=== PATIENT | male | born 1990 | race Caucasian/White ===

== ENCOUNTER 2023-03-16 16:03 | Emergency (ER) | payer OTHER ==
[2023-03-16] MEDS ORDERED: Zofran 4 MG/2 ML VIAL IV ONE (16:12)
[2023-03-16] MEDS ORDERED: Ativan 2 MG/1 ML VIAL IV ONE ×2 (16:12→17:37)
--- NOTE | 2023-03-16 16:12 | ERPHSYRPT ---
- History of Present Illness Time Seen by Provider: 03/16/23 16:12 Source: patient, EMS, old records Exam Limitations: no limitations Physician History: This is a 32-year-old white male who was witnessed by his girlfriend to have had a seizure that lasted approximately 30 seconds. Patient does not recall the events at all. His last recollection was he was at his girlfriend's mother's home. He did not soil himself in any way. He did not vomit. He does not recall hitting his head. He does not have a headache. He does not have chest pain. He does not have shortness of breath. He has no abdominal pain. Patient has a family history of epileptic seizures. He has never been fully diagnosed with a seizure disorder although, he says he has had several sporadic episodes in the last several months. He admits to drug abuse but quit in October of this past year. Patient admits to using marijuana but no other illicit drugs. His history also states that there is is a history of attention deficit disorder. He is not on any medications. Timing/Duration: today, resolved prior to arrival Severity: mild Deficits: no difficulties Baseline/Normal Cognition: alert 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 Current Cognition: alert 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 Baseline Gait: walks w/o assistance Associated Symptoms: loss of consciousness, seizures, No nausea, No vomiting, No numbness/tingling in legs/feet, No paresthesia, No vision changes, No chest pain, No headache Allergies/Adverse Reactions: No Known Drug Allergies Allergy (Verified 03/16/23 16:04) Hx Tetanus, Diphtheria Vaccination/Date Given: Yes Hx Influenza Vaccination/Date Given: No Hx Pneumococcal Vaccination/Date Given: No Travel Risk - International Travel Have you traveled outside of the country in past 3 weeks: No - Coronavirus Screening Are you exhibiting any of the following symptoms?: No Close contact with a COVID-19 positive Pt in past 14-21 Days: No - Vaccine Status Have you recieved a Covid-19 vaccination: Yes 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 - Review of Systems Constitutional: No Symptoms Eyes: No Symptoms Ears, Nose, & Throat: No Symptoms Respiratory: No Symptoms Cardiac: No Symptoms Abdominal/Gastrointestinal: No Symptoms Genitourinary Symptoms: No Symptoms Musculoskeletal: No Symptoms Skin: No Symptoms Neurological: Seizure Psychological: No Symptoms Endocrine: No Symptoms Hematologic/Lymphatic: No Symptoms Immunological/Allergic: No Symptoms All Other Systems: Reviewed and Negative - Past Medical History Pertinent Past Medical History: Yes Psycho-Social History: Attention Deficit Disorder Other Medical History: States his only medical history is being attacked/biten by a pack of dogs when he was a child and ADHD - Past Surgical History Past Surgical History: No - Social History Smoking Status: Current some day smoker Exposure to second hand smoke: No Drug Use: marijuana - Nursing Vital Signs Nursing Vital Signs: Initial Vital Signs Temperature 97.1 F 03/16/23 16:03 Pulse Rate 95 H 03/16/23 16:03 Respiratory Rate 14 03/16/23 16:03 Blood Pressure 114/63 03/16/23 16:03 O2 Sat by Pulse Oximetry 98 03/16/23 16:03 Pain Scale Pain Intensity 0 - [place] Coma Scale Best Eye Response (Stacy): (4) open spontaneously Best Verbal Response ([place]): (5) oriented Best Motor Response ([place]): (6) obeys commands St[place] Total: 15 - Physical Exam General Appearance: no apparent distress, alert, anxiety, thin Eye Exam: bilateral eye: normal inspection, PERRL, EOMI Ears, Nose, Throat Exam: normal ENT inspection, moist mucous membranes Neck Exam: normal inspection, non-tender, supple, full range of motion Respiratory: normal breath sounds, lungs clear, airway intact, No chest tenderness, No respiratory distress Cardiovascular: regular rate/rhythm, normal heart sounds, normal peripheral pulses Gastrointestinal: soft, normal bowel sounds, No tenderness Rectal Exam: not done Back Exam: normal inspection, normal range of motion, No CVA tenderness, No vertebral tenderness Extremity Exam: normal inspection, normal range of motion, pelvis stable 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, 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, 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 Exam: normal hearing, normal speech, PERRL Motor/Sensory: no motor deficit, no sensory deficit Skin Exam: normal color, warm, dry SpO2 Interpretation: normal O2 Delivery: Room Air - Course Nursing assessment & vital signs reviewed: Yes EKG Interpreted by Me: RATE (89), Sinus Rhythm, NORMAL AXIS, NORMAL INTERVALS, NORMAL QRS, NORMAL ST-T, Other (No acute ischemic changes on today's twelve-lead EKG.) Ordered Tests: Active Orders 24 hr Category Date Time Status Pipe Coverer STAT Care 03/16/23 16:15 Active Clean Catch Urine Specimen STAT Care 03/16/23 16:12 Active EKG-ER Only STAT Care 03/16/23 16:12 Active IV Insertion STAT Care 03/16/23 16:12 Active HEAD WITHOUT CONTRAST [CT] Stat Exams 03/16/23 16:13 Completed ACETAMINOPHEN Stat Lab 03/16/23 16:42 Completed CBC W DIFF Stat Lab 03/16/23 16:42 Completed CMP Stat Lab 03/16/23 16:42 Completed ETHYL ALCOHOL Stat Lab 03/16/23 16:42 Completed SALICYLATE Stat Lab 03/16/23 16:42 Completed UA W/RFX UR CULTURE Stat Lab 03/16/23 16:53 Completed Urine Triage Profile Stat Lab 03/16/23 16:53 Completed Medication Summary Discontinued Medications Generic Name Dose Route Start Last Admin Trade Name Freq PRN Reason Stop Dose Admin Lorazepam 1 mg 03/16/23 16:12 03/16/23 17:27 Lorazepam 2 Mg/1 Ml 2 Mg Vial IV 03/16/23 16:13 1 mg STAT ONE Administration Lorazepam Confirm 03/16/23 17:25 Lorazepam 2 Mg/1 Ml 2 Mg Vial Administered 03/16/23 17:26 Dose 2 mg .ROUTE .STK-MED ONE Lorazepam Confirm 03/16/23 17:36 Lorazepam 2 Mg/1 Ml 2 Mg Vial Administered 03/16/23 17:37 Dose 2 mg .ROUTE .STK-MED ONE Lorazepam 1 mg 03/16/23 17:37 03/16/23 17:40 Lorazepam 2 Mg/1 Ml 2 Mg Vial IV 03/16/23 17:38 1 mg STAT ONE Administration Ondansetron HCl 4 mg 03/16/23 16:12 Ondansetron Hcl 4 Mg/2 Ml Vial IV 03/16/23 16:13 STAT ONE Lab/Rad Data: Laboratory Result Diagrams 03/16/23 16:42 03/16/23 16:42 Laboratory Results 03/16/23 03/16/23 03/16/23 Range/Units 16:53 16:53 16:42 WBC (4.0-10.5) x10^3/uL RBC (4.1-5.6) x10^6/uL Hgb (12.5-18.0) g/dL Hct (42-50) % MCV (78-100) fL MCH (26-32) pg MCHC (32-36) g/dL RDW (11.5-14.0) % Plt Count (150-450) x10^3/uL MPV (7.5-11.0) fL Gran % (36.0-66.0) % Immature Gran % (Auto) (0.00-0.4) % Nucleat RBC Rel Count (0.00-0.1) % Eos # (Auto) (0-0.5) x10^3/uL Immature Gran # (Auto) (0.00-0.03) x10^3u/L Absolute Lymphs (auto) (1.0-4.6) x10^3/uL Absolute Monos (auto) (0.0-1.3) x10^3/uL Absolute Nucleated RBC (0.00-0.01) x10^3u/L Lymphocytes % (24.0-44.0) % Monocytes % (0.0-12.0) % Eosinophils % (0.00-5.0) % Basophils % (0.0-0.4) % Absolute Granulocytes (1.4-6.9) x10^3/uL Basophils # (0-0.4) x10^3/uL Sodium 137 (137-145) mmol/L Potassium 3.9 (3.5-5.1) mmol/L Chloride 108 H (98-107) mmol/L Carbon Dioxide 21 L (22-30) mmol/L Anion Gap 11.7 (5-15) MEQ/L BUN 11 (9-20) mg/dL Creatinine 0.76 (0.66-1.25) mg/dL Estimated GFR 121.7 ML/MIN Glucose 104 (74-106) mg/dL Calcium 9.0 (8.4-10.2) mg/dL Total Bilirubin 0.50 (0.2-1.3) mg/dL AST 29 (17-59) U/L ALT 25 (0-50) U/L Alkaline Phosphatase 54 (38-126) U/L Serum Total Protein 7.9 (6.3-8.2) g/dL Albumin 4.4 (3.5-5.0) g/dL Urine Color Yellow (Yellow) Urine Appearance Clear (Clear) Urine pH 5.0 (4.6-8.0) Ur Specific [place] 1.010 (1.005-1.030) Urine Protein 30 (Negative) Urine Glucose (UA) Negative (Negative) mg/dL Urine Ketones Negative (Negative) Urine Blood Negative (Negative) Urine Nitrite Negative (Negative) Urine Bilirubin Negative (Negative) Urine Urobilinogen 0.2 (0.2) mg/dL Ur Leukocyte Esterase Negative (Negative) U Hyaline Cast (Auto) 0-2 (0-2) /LPF Urine Microscopic RBC NONE (0-5) /HPF Urine Microscopic WBC 0-2 (0-5) /HPF Ur Epithelial Cells Rare (None Seen) /HPF Urine Bacteria None Seen (None Seen) /HPF Urine Culture Reflexed NO (NO) Salicylates < 1.0 L (2-20) mg/dL Urine Opiates Level NEGATIVE (NEGATIVE) Ur Methadone NEGATIVE (NEGATIVE) Acetaminophen < 10 L (10-30) ug/ml Urine Barbiturates NEGATIVE (NEGATIVE) Ur Phencyclidine (PCP) NEGATIVE (NEGATIVE) Urine Amphetamine NEGATIVE (NEGATIVE) U Benzodiazepine Level NEGATIVE (NEGATIVE) Urine Cocaine NEGATIVE (NEGATIVE) Urine Marijuana (THC) POSITIVE A (NEGATIVE) Ethyl Alcohol < 10 (0-10) mg/dL 03/16/23 Range/Units 16:42 WBC 3.8 L (4.0-10.5) x10^3/uL RBC 4.84 (4.1-5.6) x10^6/uL Hgb 13.9 (12.5-18.0) g/dL Hct 43.2 (42-50) % MCV 89.3 (78-100) fL MCH 28.7 (26-32) pg MCHC 32.2 (32-36) g/dL RDW 13.2 (11.5-14.0) % Plt Count 230 (150-450) x10^3/uL MPV 8.9 (7.5-11.0) fL Gran % 37.5 (36.0-66.0) % Immature Gran % (Auto) 0.5 H (0.00-0.4) % Nucleat RBC Rel Count 0.0 (0.00-0.1) % Eos # (Auto) 0.04 (0-0.5) x10^3/uL Immature Gran # (Auto) 0.02 (0.00-0.03) x10^3u/L Absolute Lymphs (auto) 1.85 (1.0-4.6) x10^3/uL Absolute Monos (auto) 0.45 (0.0-1.3) x10^3/uL Absolute Nucleated RBC 0.00 (0.00-0.01) x10^3u/L Lymphocytes % 48.3 H (24.0-44.0) % Monocytes % 11.7 (0.0-12.0) % Eosinophils % 1.0 (0.00-5.0) % Basophils % 1.0 (0.0-0.4) % Absolute Granulocytes 1.43 (1.4-6.9) x10^3/uL Basophils # 0.04 (0-0.4) x10^3/uL Sodium (137-145) mmol/L Potassium (3.5-5.1) mmol/L Chloride (98-107) mmol/L Carbon Dioxide (22-30) mmol/L Anion Gap (5-15) MEQ/L BUN (9-20) mg/dL Creatinine (0.66-1.25) mg/dL Estimated GFR ML/MIN Glucose (74-106) mg/dL Calcium (8.4-10.2) mg/dL Total Bilirubin (0.2-1.3) mg/dL AST (17-59) U/L ALT (0-50) U/L Alkaline Phosphatase (38-126) U/L Serum Total Protein (6.3-8.2) g/dL Albumin (3.5-5.0) g/dL Urine Color (Yellow) Urine Appearance (Clear) Urine pH (4.6-8.0) Ur Specific [place] (1.005-1.030) Urine Protein (Negative) Urine Glucose (UA) (Negative) mg/dL Urine Ketones (Negative) Urine Blood (Negative) Urine Nitrite (Negative) Urine Bilirubin (Negative) Urine Urobilinogen (0.2) mg/dL Ur Leukocyte Esterase (Negative) U Hyaline Cast (Auto) (0-2) /LPF Urine Microscopic RBC (0-5) /HPF Urine Microscopic WBC (0-5) /HPF Ur Epithelial Cells (None Seen) /HPF Urine Bacteria (None Seen) /HPF Urine Culture Reflexed (NO) Salicylates (2-20) mg/dL Urine Opiates Level (NEGATIVE) Ur Methadone (NEGATIVE) Acetaminophen (10-30) ug/ml Urine Barbiturates (NEGATIVE) Ur Phencyclidine (PCP) (NEGATIVE) Urine Amphetamine (NEGATIVE) U Benzodiazepine Level (NEGATIVE) Urine Cocaine (NEGATIVE) Urine Marijuana (THC) (NEGATIVE) Ethyl Alcohol (0-10) mg/dL - Progress Progress: improved, re-examined Progress Note: 03/16/23 16:37 This patient's medical issue is 1 of moderate complexity. The level of complexity in the workup performed is based on the review of the patient's past medical history, review of the patient's medication list, review of the patient's drug allergy list, history of present illness and physical findings on examination. This patient's workup includes placement of an intravenous line, twelve-lead EKG, urinalysis, urine drug triage, acetaminophen level, salicylate level, blood alcohol level, CT scan of the head without contrast. 03/16/23 17:11 CT scan of the head without contrast was interpreted by the radiologist and I reviewed the impression. Impression states normal CT scan of the head without contrast 03/16/23 18:24 Patient had additional seizure episodes x 2 while here in the emergency department. We provided him with an additional dose of Ativan intravenously for total of 2 mg. We are also going to provide him with 500 mg intravenous Keppra followed by outpatient 500 mg Keppra twice a day. 03/16/23 18:25 I interpreted the laboratory data results. There is no evidence of any acute, or emergent medical issues based on laboratory data Counseled pt/family regarding: lab results, diagnosis, need for follow-up, rad results Medical Desision Making - Independent Historian Additional History obtained from: Relative/friend - Diagnostic Testing Diagnostic test were ordered, analyzed, and reviewed by me: Yes Radiological Interpretation: Reviewed by me, Teleradiologist Report - Risk of complications The pt has a mod risk of morbidity or mortality based on: Need for prescription drug management - Departure Departure Disposition: Home Clinical Impression: Seizure disorder Condition: Stable Critical Care Time: No Referrals: DOCTOR,NO FAMILY [Primary Care Provider] - Follow up/PCP as directed Additional Instructions: Take your antiseizure medicine as prescribed. Call tomorrow, 03/17/2023, and make an appointment with a primary care provider for further evaluation and management and referral to a neurologist. Prescriptions: Levetiracetam [Keppra] 500 mg PO BID #20 tablet
[2023-03-16 16:23] VITALS: TEMP 97.1
--- NOTE | 2023-03-16 16:42 | XRAY ---
Indication: Seizure. Multiple contiguous axial images obtained through the head without contrast. Comparison: None Normal appearing brain parenchyma, ventricles, and bony calvarium. Visualized paranasal sinuses and mastoid air cells are clear. Impression: Normal CT head without contrast exam.
[2023-03-16 16:52] LABS: Absolute Neutrophil Ct (ANC) 1.43 x10^3/uL (1.4-6.9); Basophil (Absolute #) 0.04 x10^3/uL (0-0.4); Eosinophil (Absolute #) 0.04 x10^3/uL (0-0.5); Hematocrit 43.2 % (42-50); Hemoglobin 13.9 g/dL (12.5-18.0); IMMATURE GRAN # 0.02 x10^3u/L (0.00-0.03); IMMATURE GRAN % 0.5 % (0.00-0.4); Lymphocyte (Absolute #) 1.85 x10^3/uL (1.0-4.6); Lymphocytes % 48.3 % (24.0-44.0); Mean Cell Volume 89.3 fL (78-100); Mean Corpuscular Hemoglobin 28.7 pg (26-32); Mean Corpuscular Hgb Concent. 32.2 g/dL (32-36); Mean Platelet Volume 8.9 fL (7.5-11.0); Monocyte (Absolute #) 0.45 x10^3/uL (0.0-1.3); Monocytes % 11.7 % (0.0-12.0); Neutrophil % 37.5 % (36.0-66.0); Platelet Count 230 x10^3/uL (150-450); Red Blood Count 4.84 x10^6/uL (4.1-5.6); Red Cell Distribution Width 13.2 % (11.5-14.0); White Blood Count 3.8 x10^3/uL (4.0-10.5)
[2023-03-16 17:06] LABS: ACETAMINOPHEN < 10 ug/ml (10-30); ALBUMIN 4.4 g/dL (3.5-5.0); ALKALINE PHOSPHATASE 54 U/L (38-126); ANION GAP 11.7 MEQ/L (5-15); BLOOD UREA NITROGEN 11 mg/dL (9-20); CHLORIDE 108 mmol/L (98-107); Carbon Dioxide 21 mmol/L (22-30); Creatinine 1 0.76 mg/dL (0.66-1.25); EST GLOMERULAR FILTRATION RATE 121.7 ML/MIN; ETHYL ALCOHOL < 10 mg/dL (0-10); Glucose 104 mg/dL (74-106); Potassium 3.9 mmol/L (3.5-5.1); SALICYLATE < 1.0 mg/dL (2-20); SGOT/AST 29 U/L (17-59); SGPT/ALT 25 U/L (0-50); SODIUM 137 mmol/L (137-145); Total Protein 7.9 g/dL (6.3-8.2)
[2023-03-16] MEDS ORDERED: Ativan 2 MG/1 ML VIAL ONE ×2 (17:25→17:36)
[2023-03-16 17:27] LABS: Amphetamine,Urine NEGATIVE (NEGATIVE); Barbiturate,Urine NEGATIVE (NEGATIVE); Benzodiazepine,Urine NEGATIVE (NEGATIVE); Cocaine,Urine NEGATIVE (NEGATIVE); Methadone,Urine NEGATIVE (NEGATIVE); Opiate,Urine NEGATIVE (NEGATIVE); PCP,Urine NEGATIVE (NEGATIVE); THC,Urine POSITIVE (NEGATIVE)
[2023-03-16 17:31] LABS: Appearance Clear (Clear); Bacteria None Seen /HPF (None Seen); Bilirubin Negative (Negative); Blood Negative (Negative); Glucose, Urine Negative (Negative); Ketones Negative (Negative); Leukocyte Esterase Negative (Negative); Nitrite Negative (Negative); Protein,Urine Dip 30 (Negative); Urobilinogen 0.2 mg/dL (0.2); WBC 0-2 /HPF (0-5)
[2023-03-16 17:34] LABS: Hyaline Casts 0-2 /LPF (0-2)
[2023-03-16] MEDS ORDERED: Ativan 2 MG/1 ML VIAL IM ONE (17:34)
[2023-03-16 17:35] LABS: ADD URINE CULTURE? NO (NO); Epithelial Cells Rare /HPF (None Seen)
[2023-03-16] MEDS ORDERED: Keppra 500 MG/5 ML*** 500 MG in D5w 100ML Mini Bag 100 ML 100 ML IV ONE (18:23)
[2023-03-16] MEDS ORDERED: Keppra 500 MG/5 ML ONE (18:44)
[2023-03-16] MEDS ORDERED: D5w 100ML Mini Bag 100 ML 100 ML IV ONE (18:44)
[2023-03-16 19:23] VITALS: BP 99/52; PULSE 76; RESP 18; O2SAT 99
== END 2023-03-16 19:23 | disposition home or self-care (01) ==
LOC: ED 16:03
DX: G40.909 Epilepsy, unspecified, not intractable, without status epilepticus (principal); Z72.0 Tobacco use
CPT/HCPCS: 36000; 36415; 70450; 80053; 80143; 80179; 80307; 81001; 82077; 85025; 93005; 93041; 96374; 99284; J1953; J2060

== ENCOUNTER 2023-05-12 12:09 | Emergency (ER) | payer OTHER ==
[2023-05-12 12:20] VITALS: TEMP 98.7
[2023-05-12 13:16] VITALS: O2SAT 98
[2023-05-12 13:18] LABS: Absolute Neutrophil Ct (ANC) 10.38 x10^3/uL (1.4-6.9); BASOPHIL % 0.3 % (0.0-0.4); Basophil (Absolute #) 0.04 x10^3/uL (0-0.4); Eosinophil % 1.4 % (0.00-5.0); Eosinophil (Absolute #) 0.17 x10^3/uL (0-0.5); Hematocrit 40.4 % (42-50); Hemoglobin 13.2 g/dL (12.5-18.0); IMMATURE GRAN # 0.04 x10^3u/L (0.00-0.03); IMMATURE GRAN % 0.3 % (0.00-0.4); Lymphocyte (Absolute #) 1.09 x10^3/uL (1.0-4.6); Lymphocytes % 8.7 % (24.0-44.0); Mean Cell Volume 88.4 fL (78-100); Mean Corpuscular Hemoglobin 28.9 pg (26-32); Mean Corpuscular Hgb Concent. 32.7 g/dL (32-36); Monocyte (Absolute #) 0.78 x10^3/uL (0.0-1.3); Monocytes % 6.2 % (0.0-12.0); Neutrophil % 83.1 % (36.0-66.0); Platelet Count 349 x10^3/uL (150-450); Red Blood Count 4.57 x10^6/uL (4.1-5.6); Red Cell Distribution Width 14.2 % (11.5-14.0); White Blood Count 12.5 x10^3/uL (4.0-10.5)
[2023-05-12 13:29] LABS: ACETAMINOPHEN < 10 ug/ml (10-30); ETHYL ALCOHOL < 10 mg/dL (0-10); SALICYLATE < 1.0 mg/dL (2-20)
[2023-05-12 13:30] LABS: ALBUMIN 4.6 g/dL (3.5-5.0); ANION GAP 13.9 MEQ/L (5-15); BILIRUBIN,TOTAL 0.3 mg/dL (0.2-1.3); Calcium 9.3 mg/dL (8.4-10.2); Creatinine 1 0.71 mg/dL (0.66-1.25); EST GLOMERULAR FILTRATION RATE 124.2 ML/MIN; Potassium 4.1 mmol/L (3.5-5.1); Total Protein 7.9 g/dL (6.3-8.2)
--- NOTE | 2023-05-12 14:00 | ERPHSYRPT ---
- History of Present Illness Time Seen by Provider: 05/12/23 12:20 Source: patient Exam Limitations: no limitations Patient Subjective Stated Complaint: [place] and was given 4mg of narcan and then he came to Triage Nursing Assessment: Pt brought to the ER by EMS, vitals wnl, denies pain, A&O x3, pt denies any drug use but was found with multiple vapes, pt stated that he may have been sleeping because he hasn't had much sleep lately and is homeless, pulses normal, skin n/w/d, texting someone on his cell phone, denies abdominal pain, denies N&V, no difficulty breathing, doesn't appear to be in any distress Physician History: 32-year-old male presents to our ED via EMS for medical screening exam. Patient was reportedly found unresponsive and responsive to Narcan. However patient st ates he was sleeping. Patient denies opiate use. Patient states he is homeless and has not slept. Pain patient reports that he finally found a comfortable spot and decided to take a nap. Patient denies drug use. Patient denies pain. Patient states he is originally from [place]. Then lived in [place] now is currently living in [place] with his girlfriend. Patient denies medical history. Patient admits to vaping. He voices no other complaints or concerns at this time. Portions of this note were created with voice recognition technology. There may be grammatical, spelling, punctuation or sound alike errors Severity: mild Modifying Factors: Improves With: nothing Associated Symptoms: denies symptoms Allergies/Adverse Reactions: No Known Drug Allergies Allergy (Verified 05/12/23 12:20) Home Medications: No Reportable Medications [No Reported Medications] 05/12/23 [History] Hx Tetanus, Diphtheria Vaccination/Date Given: Yes Hx Influenza Vaccination/Date Given: No Hx Pneumococcal Vaccination/Date Given: No Travel Risk - International Travel Have you traveled outside of the country in past 3 weeks: No - Coronavirus Screening Are you exhibiting any of the following symptoms?: No Close contact with a COVID-19 positive Pt in past 14-21 Days: No - Vaccine Status Have you recieved a Covid-19 vaccination: Yes Organ Installer: 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 - Review of Systems Constitutional: No Symptoms, No Fever, No Chills Eyes: No Symptoms Ears, Nose, & Throat: No Symptoms Respiratory: No Symptoms, No Cough, No Dyspnea Cardiac: No Symptoms, No Chest Pain, No Edema, No Syncope Abdominal/Gastrointestinal: No Symptoms, No Abdominal Pain, No Nausea, No Vomiting, No Diarrhea Genitourinary Symptoms: No Symptoms, No Dysuria Musculoskeletal: No Symptoms, No Back Pain, No Neck Pain Skin: No Symptoms, No Rash Neurological: No Symptoms, No Dizziness, No Focal Weakness, No Sensory Changes Psychological: No Symptoms Endocrine: No Symptoms Hematologic/Lymphatic: No Symptoms Immunological/Allergic: No Symptoms All Other Systems: Reviewed and Negative - Past Medical History Pertinent Past Medical History: Yes Neurological History: Seizures Psycho-Social History: Attention Deficit Disorder Other Medical History: States his only medical history is being attacked/biten by a pack of dogs when he was a child and ADHD - Past Surgical History Past Surgical History: No - Social History Smoking Status: Current some day smoker Exposure to second hand smoke: No Drug Use: marijuana Patient Lives Alone: Yes (homeless) - Nursing Vital Signs Nursing Vital Signs: Initial Vital Signs Blood Pressure 135/71 05/12/23 12:11 O2 Sat by Pulse Oximetry 98 05/12/23 12:11 Pain Scale Pain Intensity 0 - Physical Exam General Appearance: no apparent distress, alert Eye Exam: PERRL/EOMI, eyes nml inspection Ears, Nose, Throat Exam: normal ENT inspection, TMs normal, pharynx normal, moist mucous membranes Neck Exam: normal inspection, non-tender, supple, full range of motion Respiratory Exam: normal breath sounds, lungs clear, airway intact, No respiratory distress Cardiovascular Exam: regular rate/rhythm, normal heart sounds, normal peripheral pulses Gastrointestinal/Abdomen Exam: soft, normal bowel sounds, No tenderness, No mass Back Exam: normal inspection, normal range of motion, No CVA tenderness, No vertebral tenderness Extremity Exam: normal inspection, normal range of motion, pelvis stable Neurologic Exam: alert, 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, cooperative, normal mood/affect, nml cerebellar function, nml station & gait, sensation nml, No motor deficits Skin Exam: normal color, warm, dry, No rash Lymphatic Exam: No adenopathy SpO2 Interpretation: normal SpO2: 98 O2 Delivery: Room Air - Course Nursing assessment & vital signs reviewed: Yes EKG Interpreted by Me: RATE ([id number]), Sinus Rhythm, NORMAL AXIS, NORMAL INTERVALS Ordered Tests: Active Orders 24 hr Category Date Time Status Field Service Supervisor STAT Care 05/12/23 12:52 Active EKG-ER Only STAT Care 05/12/23 12:52 Active IV Insertion STAT Care 05/12/23 12:52 Active Pulse Oximetry (ED) STAT Care 05/12/23 12:52 Active ACETAMINOPHEN Stat Lab 05/12/23 13:10 Completed CBC W DIFF Stat Lab 05/12/23 13:10 Completed CMP Stat Lab 05/12/23 13:10 Completed ETHYL ALCOHOL Stat Lab 05/12/23 13:10 Completed NT PRO BNPII Stat Lab 05/12/23 13:10 Completed SALICYLATE Stat Lab 05/12/23 13:10 Completed TROPONIN Q4H Lab 05/12/23 13:10 Completed TROPONIN Q4H Lab 05/12/23 17:00 Ordered TROPONIN Q4H Lab 05/12/23 21:00 Ordered UA W/RFX UR CULTURE Stat Lab 05/12/23 13:25 Ordered Urine Triage Profile Stat Lab 05/12/23 13:25 Ordered Lab/Rad Data: Laboratory Result Diagrams 05/12/23 13:10 05/12/23 13:10 Laboratory Results 05/12/23 05/12/23 05/12/23 Range/Units 13:10 13:10 13:10 WBC (4.0-10.5) x10^3/uL RBC (4.1-5.6) x10^6/uL Hgb (12.5-18.0) g/dL Hct (42-50) % MCV (78-100) fL MCH (26-32) pg MCHC (32-36) g/dL RDW (11.5-14.0) % Plt Count (150-450) x10^3/uL MPV (7.5-11.0) fL Gran % (36.0-66.0) % Immature Gran % (Auto) (0.00-0.4) % Nucleat RBC Rel Count (0.00-0.1) % Eos # (Auto) (0-0.5) x10^3/uL Immature Gran # (Auto) (0.00-0.03) x10^3u/L Absolute Lymphs (auto) (1.0-4.6) x10^3/uL Absolute Monos (auto) (0.0-1.3) x10^3/uL Absolute Nucleated RBC (0.00-0.01) x10^3u/L Lymphocytes % (24.0-44.0) % Monocytes % (0.0-12.0) % Eosinophils % (0.00-5.0) % Basophils % (0.0-0.4) % Absolute Granulocytes (1.4-6.9) x10^3/uL Basophils # (0-0.4) x10^3/uL Sodium (135-145) mmol/L Potassium (3.5-5.1) mmol/L Chloride (98-107) mmol/L Carbon Dioxide (22-30) mmol/L Anion Gap (5-15) MEQ/L BUN (9-20) mg/dL Creatinine (0.66-1.25) mg/dL Estimated GFR ML/MIN Glucose (74-106) mg/dL Calcium (8.4-10.2) mg/dL Total Bilirubin (0.2-1.3) mg/dL AST (17-59) U/L ALT (0-50) U/L Alkaline Phosphatase (38-126) U/L Troponin I < 0.012 (0.000-0.034) ng/mL NT-Pro-B Natriuret Pep 50.5 (<300) pg/mL Serum Total Protein (6.3-8.2) g/dL Albumin (3.5-5.0) g/dL Salicylates < 1.0 L (2-20) mg/dL Acetaminophen < 10 L (10-30) ug/ml Ethyl Alcohol < 10 (0-10) mg/dL 05/12/23 05/12/23 Range/Units 13:10 13:10 WBC 12.5 H (4.0-10.5) x10^3/uL RBC 4.57 (4.1-5.6) x10^6/uL Hgb 13.2 (12.5-18.0) g/dL Hct 40.4 L (42-50) % MCV 88.4 (78-100) fL MCH 28.9 (26-32) pg MCHC 32.7 (32-36) g/dL RDW 14.2 H (11.5-14.0) % Plt Count 349 (150-450) x10^3/uL MPV 8.0 (7.5-11.0) fL Gran % 83.1 H (36.0-66.0) % Immature Gran % (Auto) 0.3 (0.00-0.4) % Nucleat RBC Rel Count 0.0 (0.00-0.1) % Eos # (Auto) 0.17 (0-0.5) x10^3/uL Immature Gran # (Auto) 0.04 H (0.00-0.03) x10^3u/L Absolute Lymphs (auto) 1.09 (1.0-4.6) x10^3/uL Absolute Monos (auto) 0.78 (0.0-1.3) x10^3/uL Absolute Nucleated RBC 0.00 (0.00-0.01) x10^3u/L Lymphocytes % 8.7 L (24.0-44.0) % Monocytes % 6.2 (0.0-12.0) % Eosinophils % 1.4 (0.00-5.0) % Basophils % 0.3 (0.0-0.4) % Absolute Granulocytes 10.38 H (1.4-6.9) x10^3/uL Basophils # 0.04 (0-0.4) x10^3/uL Sodium 140 (135-145) mmol/L Potassium 4.1 (3.5-5.1) mmol/L Chloride 108 H (98-107) mmol/L Carbon Dioxide 22 (22-30) mmol/L Anion Gap 13.9 (5-15) MEQ/L BUN 13 (9-20) mg/dL Creatinine 0.71 (0.66-1.25) mg/dL Estimated GFR 124.2 ML/MIN Glucose 96 (74-106) mg/dL Calcium 9.3 (8.4-10.2) mg/dL Total Bilirubin 0.30 (0.2-1.3) mg/dL AST 27 (17-59) U/L ALT 24 (0-50) U/L Alkaline Phosphatase 58 (38-126) U/L Troponin I (0.000-0.034) ng/mL NT-Pro-B Natriuret Pep (<300) pg/mL Serum Total Protein 7.9 (6.3-8.2) g/dL Albumin 4.6 (3.5-5.0) g/dL Salicylates (2-20) mg/dL Acetaminophen (10-30) ug/ml Ethyl Alcohol (0-10) mg/dL - Progress Progress: improved Progress Note: 32-year-old male presents to our ED for medical screening exam. Physical exam nonremarkable. Laboratory workup essentially nonremarkable. Patient observed for almost 2 hours in our ED. Vital stable. Patient asymptomatic he is not requesting discharge. Patient's girlfriend is waiting for him. Will discharge patient home. Patient does not have a local physician at this time however pat fransico referred to Dr. Izquierdo for follow-up. Patient agrees to follow-up within 48 hours. He voices no other complaints or concerns at this time. Portions of this note were created with voice recognition technology. There may be grammatical, spelling, punctuation or sound alike errors Complexity problem addressed is moderate acute complicated No critical care time Complex of data reviewed and analyzed is moderate. Test ordered test reviewed. Results analyzed and correlated clinically with history and physical exam. Risk of complication and or risk of morbidity/mortality of patient management is low Vital stable. Time spent to discharge patient is approximately 20 minutes. Plan of care established for shared decision making. No social determinants of health present impede follow-up. Portions of this note were created with voice recognition technology. There may be grammatical, spelling, punctuation or sound alike error 05/12/23 14:06 Counseled pt/family regarding: lab results, diagnosis, need for follow-up, rad results - Departure Departure Disposition: Home Clinical Impression: Encounter for medical screening examination Condition: Stable Critical Care Time: No Referrals: DOCTOR,NO FAMILY [Primary Care Provider] - Follow up/PCP as directed KAMI IZQUIERDO MD [ACTIVE STAFF] - Follow up/PCP as directed Additional Instructions: Discharge/Care Plan LORAINE CALDERON was seen on 05/12/23 in the Emergency Room. The patient was counseled regarding Diagnosis,Lab results, Imaging studies, need for follow up and when to return to the Emergency Room. Prescriptions given: Discharge Note I have spoken with the patient and/or caregivers. I have explained the patient's condition, diagnosis and treatment plan based on the information available to me at this time. I have answered the patient's and/or caregiver's questions and addressed any concerns. The patient and/or caregivers have as good understanding of the patient's diagnosis, condition and treatment plan as can be expected at this point. The vital signs have been stable. The patient's condition is stable and appropriate for discharge from the emergency department. The patient will pursue further outpatient evaluation with the primary care physician or other designated or consulting physician as outlined in the discharge instructions. The patient and/or caregivers are agreeable to this plan of care and follow-up instructions have been explained in detail. The patient and/or caregivers have received these instruction. The patient/and or caregivers are aware that any significant change in condition or worsening of symptoms should prompt an immediate return to this or the closest emergency department or call 911.
[2023-05-12 14:04] VITALS: BP 114/70; PULSE 79; RESP 12
[2023-05-12 14:24] LABS: Appearance Clear (Clear); Bacteria None Seen /HPF (None Seen); Bilirubin Negative (Negative); Blood Negative (Negative); Epithelial Cells None Seen /HPF (None Seen); Glucose, Urine Negative (Negative); Hyaline Casts NONE SEEN /LPF (0-2); Ketones Negative (Negative); Leukocyte Esterase Negative (Negative); Nitrite Negative (Negative); Protein,Urine Dip Negative (Negative); RBC 0-2 /HPF (0-5); Specific Gravity 1.015 (1.005-1.030); WBC 0-2 /HPF (0-5)
[2023-05-12 14:26] LABS: ADD URINE CULTURE? NO (NO)
[2023-05-12 14:45] LABS: Amphetamine,Urine NEGATIVE (NEGATIVE); Barbiturate,Urine NEGATIVE (NEGATIVE); Benzodiazepine,Urine NEGATIVE (NEGATIVE); Cocaine,Urine NEGATIVE (NEGATIVE); Methadone,Urine NEGATIVE (NEGATIVE); Opiate,Urine NEGATIVE (NEGATIVE); PCP,Urine NEGATIVE (NEGATIVE); THC,Urine POSITIVE (NEGATIVE)
== END 2023-05-12 14:12 | disposition home or self-care (01) ==
LOC: ED 12:09
DX: Z00.00 Encounter for general adult medical examination without abnormal findings (principal); F17.200 Nicotine dependence, unspecified, uncomplicated; Z59.00 Homelessness unspecified
CPT/HCPCS: 36000; 36415; 80053; 80143; 80179; 80307; 81001; 82077; 83880; 84484; 85025; 93005; 93041; 94760; 99284

== ENCOUNTER 2023-06-01 15:18 | Emergency (ER) | payer OTHER ==
--- NOTE | 2023-06-01 15:27 | ERPHSYRPT ---
- History of Present Illness Time Seen by Provider: 06/01/23 15:26 Source: patient, EMS, old records Exam Limitations: no limitations Physician History: This is a thin 32-year-old white male patient who was brought into the emergency department by paramedics because of witnessed seizure and fall. Patient was outside of work when this occurred. It occurred prior to arrival. Patient has been seen in this emergency department for seizures on at least 2 occasions and the other 2 occasions, patient was found to be unresponsive and sleepy. Patient denies illicit drug use except for occasional marijuana. He denies alcohol use/abuse. He denies head injury. Patient has a family history of epileptic seizures. He has never been fully diagnosed. He does not see a primary care provider, he has no known drug allergies and is not on any medications. Patient has never seen a neurologist. Patient has a history, in the past, of drug abuse. Patient has been diagnosed with ADD H but is not on any medication for this. Today, the patient feels a little sleepy but otherwise does not feel bad. He does state that in the last 2-3 nights he has not been sleeping well. He denies chest pain. He denies shortness of breath, he denies abdominal pain. He has not had any fever. He has no flulike symptoms. Patient denies soiling himself with stool or urine. Timing/Duration: today Severity: mild Character of Deficits: none Deficits: no difficulties Baseline/Normal Cognition: alert 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 Current Cognition: alert 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 Baseline Gait: walks w/o assistance Associated Symptoms: denies symptoms Allergies/Adverse Reactions: No Known Drug Allergies Allergy (Verified 05/12/23 12:20) Home Medications: No Reportable Medications [No Reported Medications] 05/12/23 [History] Hx Tetanus, Diphtheria Vaccination/Date Given: Yes Hx Influenza Vaccination/Date Given: No Hx Pneumococcal Vaccination/Date Given: No Travel Risk - International Travel Have you traveled outside of the country in past 3 weeks: No - Emerging Infectious Disease Are you exhibiting symptoms associated with any current EIDs: No - Review of Systems Constitutional: No Symptoms Eyes: No Symptoms Ears, Nose, & Throat: No Symptoms Respiratory: No Symptoms Cardiac: No Symptoms Abdominal/Gastrointestinal: No Symptoms Genitourinary Symptoms: No Symptoms Musculoskeletal: No Symptoms Skin: No Symptoms Neurological: Seizure Psychological: No Symptoms Endocrine: No Symptoms Hematologic/Lymphatic: No Symptoms Immunological/Allergic: No Symptoms All Other Systems: Reviewed and Negative - Past Medical History Pertinent Past Medical History: Yes Neurological History: Seizures Psycho-Social History: Attention Deficit Disorder Other Medical History: States his only medical history is being attacked/biten by a pack of dogs when he was a child and ADHD - Past Surgical History Past Surgical History: No - Social History Smoking Status: Current some day smoker Exposure to second hand smoke: No Drug Use: marijuana Patient Lives Alone: Yes (homeless) - Nursing Vital Signs Nursing Vital Signs: Initial Vital Signs Temperature 97.2 F 06/01/23 15:22 Pulse Rate 107 H 06/01/23 15:22 Respiratory Rate 20 06/01/23 15:22 Blood Pressure 126/79 06/01/23 15:22 O2 Sat by Pulse Oximetry 98 06/01/23 15:22 Pain Scale Pain Intensity 0 - Stacy Coma Scale Best Eye Response ([place]): (4) open spontaneously Best Verbal Response ([place]): (5) oriented Best Motor Response ([place]acy): (6) obeys commands Stacy Total: 15 - Physical Exam General Appearance: no apparent distress, alert, anxiety Eye Exam: bilateral eye: normal inspection, PERRL, EOMI Ears, Nose, Throat Exam: normal ENT inspection, moist mucous membranes Neck Exam: normal inspection, non-tender, other (Patient presents with cervical collar in place) Respiratory: normal breath sounds, lungs clear, airway intact, No chest tenderness, No respiratory distress Cardiovascular: regular rate/rhythm, normal heart sounds, normal peripheral pulses Gastrointestinal: soft, normal bowel sounds, No tenderness Rectal Exam: not done Back Exam: normal inspection, normal range of motion, No CVA tenderness, No vertebral tenderness Extremity Exam: normal inspection, normal range of motion, pelvis stable 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, 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, 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 Exam: normal hearing, normal speech, PERRL Motor/Sensory: no motor deficit, no sensory deficit Skin Exam: normal color, warm, dry SpO2 Interpretation: normal O2 Delivery: Room Air - Course Nursing assessment & vital signs reviewed: Yes EKG Interpreted by Me: RATE ([id number]), Sinus Tach, NORMAL AXIS, NORMAL INTERVALS, NORMAL QRS, NORMAL ST-T, Other (No acute ischemic changes on twelve-lead EKG) Ordered Tests: Active Orders 24 hr Category Date Time Status AMA [Release AMA] OM.NOW Care 06/01/23 16:29 Active Penciller STAT Care 06/01/23 15:32 Active EKG-ER Only STAT Care 06/01/23 15:30 Active IV Insertion STAT Care 06/01/23 15:30 Active POCT Glucose Check ONCE Care 06/01/23 15:30 Completed Pulse Oximetry (ED) STAT Care 06/01/23 15:30 Active ACO SDOH Referral ONCE Cons 06/01/23 15:28 Active CERVICAL SPINE WO CONTRAST [CT] Stat Exams 06/01/23 15:30 Completed HEAD WITHOUT CONTRAST [CT] Stat Exams 06/01/23 15:30 Completed ACETAMINOPHEN Stat Lab 06/01/23 15:40 Completed CBC W DIFF Stat Lab 06/01/23 15:30 Completed CMP Stat Lab 06/01/23 15:40 Completed ETHYL ALCOHOL Stat Lab 06/01/23 15:40 Completed SALICYLATE Stat Lab 06/01/23 15:40 Completed TROPONIN Q4H Lab 06/01/23 15:40 Completed TROPONIN Q4H Lab 06/01/23 19:45 Ordered TROPONIN Q4H Lab 06/01/23 23:45 Ordered UA W/RFX UR CULTURE Stat Lab 06/01/23 15:30 Ordered Urine Triage Profile Stat Lab 06/01/23 15:30 Ordered Medication Summary Discontinued Medications Generic Name Dose Route Start Last Admin Trade Name Freq PRN Reason Stop Dose Admin Sodium Chloride 1,000 mls @ 999 mls/hr 06/01/23 15:30 Sodium Chloride 0.9% 1000 Ml IV 06/01/23 16:30 .Q1H1M STA Lab/Rad Data: Laboratory Result Diagrams 06/01/23 15:30 06/01/23 15:40 Laboratory Results 06/01/23 06/01/23 06/01/23 Range/Units 15:40 15:40 15:40 WBC (4.0-10.5) x10^3/uL RBC (4.1-5.6) x10^6/uL Hgb (12.5-18.0) g/dL Hct (42-50) % MCV (78-100) fL MCH (26-32) pg MCHC (32-36) g/dL RDW (11.5-14.0) % Plt Count (150-450) x10^3/uL MPV (7.5-11.0) fL Gran % (36.0-66.0) % Immature Gran % (Auto) (0.00-0.4) % Nucleat RBC Rel Count (0.00-0.1) % Eos # (Auto) (0-0.5) x10^3/uL Immature Gran # (Auto) (0.00-0.03) x10^3u/L Absolute Lymphs (auto) (1.0-4.6) x10^3/uL Absolute Monos (auto) (0.0-1.3) x10^3/uL Absolute Nucleated RBC (0.00-0.01) x10^3u/L Lymphocytes % (24.0-44.0) % Monocytes % (0.0-12.0) % Eosinophils % (0.00-5.0) % Basophils % (0.0-0.4) % Absolute Granulocytes (1.4-6.9) x10^3/uL Basophils # (0-0.4) x10^3/uL Sodium 140 (135-145) mmol/L Potassium 3.7 (3.5-5.1) mmol/L Chloride 107 (98-107) mmol/L Carbon Dioxide 18 L (22-30) mmol/L Anion Gap 18.1 H (5-15) MEQ/L BUN 10 (9-20) mg/dL Creatinine 0.88 (0.66-1.25) mg/dL Estimated GFR 116.4 ML/MIN Glucose 104 (74-106) mg/dL Calcium 9.1 (8.4-10.2) mg/dL Total Bilirubin 0.40 (0.2-1.3) mg/dL AST 31 (17-59) U/L ALT 29 (0-50) U/L Alkaline Phosphatase 53 (38-126) U/L Troponin I < 0.012 (0.000-0.034) ng/mL Serum Total Protein 8.0 (6.3-8.2) g/dL Albumin 4.5 (3.5-5.0) g/dL Salicylates < 1.0 L (2-20) mg/dL Acetaminophen < 10 L (10-30) ug/ml Ethyl Alcohol < 10 (0-10) mg/dL 04/01/24 Range/Units 15:30 WBC 4.0 (4.0-10.5) x10^3/uL RBC 4.52 (4.1-5.6) x10^6/uL Hgb 13.2 (12.5-18.0) g/dL Hct 40.9 L (42-50) % MCV 90.5 (78-100) fL MCH 29.2 (26-32) pg MCHC 32.3 (32-36) g/dL RDW 14.4 H (11.5-14.0) % Plt Count 285 (150-450) x10^3/uL MPV 8.2 (7.5-11.0) fL Gran % 45.1 (36.0-66.0) % Immature Gran % (Auto) 0.3 (0.00-0.4) % Nucleat RBC Rel Count 0.0 (0.00-0.1) % Eos # (Auto) 0.02 (0-0.5) x10^3/uL Immature Gran # (Auto) 0.01 (0.00-0.03) x10^3u/L Absolute Lymphs (auto) 1.63 (1.0-4.6) x10^3/uL Absolute Monos (auto) 0.48 (0.0-1.3) x10^3/uL Absolute Nucleated RBC 0.00 (0.00-0.01) x10^3u/L Lymphocytes % 41.2 (24.0-44.0) % Monocytes % 12.1 H (0.0-12.0) % Eosinophils % 0.5 (0.00-5.0) % Basophils % 0.8 (0.0-0.4) % Absolute Granulocytes 1.79 (1.4-6.9) x10^3/uL Basophils # 0.03 (0-0.4) x10^3/uL Sodium (135-145) mmol/L Potassium (3.5-5.1) mmol/L Chloride (98-107) mmol/L Carbon Dioxide (22-30) mmol/L Anion Gap (5-15) MEQ/L BUN (9-20) mg/dL Creatinine (0.66-1.25) mg/dL Estimated GFR ML/MIN Glucose (74-106) mg/dL Calcium (8.4-10.2) mg/dL Total Bilirubin (0.2-1.3) mg/dL AST (17-59) U/L ALT (0-50) U/L Alkaline Phosphatase (38-126) U/L Troponin I (0.000-0.034) ng/mL Serum Total Protein (6.3-8.2) g/dL Albumin (3.5-5.0) g/dL Salicylates (2-20) mg/dL Acetaminophen (10-30) ug/ml Ethyl Alcohol (0-10) mg/dL - Progress Progress: improved, re-examined Progress Note: 06/01/23 15:38 This patient's medical issue is 1 of moderate complexity. The level of comp lexity in the workup performed is based on review of the patient's past medical history, review the patient's medication list, review the patient drug allergy list, history present illness and physical findings on examination. The workup in this patient includes placement of intravenous line, infusion of normal saline solution, urinalysis, CBC, CMP, troponin level, twelve-lead EKG, acetaminophen level, salicylate level, alcohol level, CT scan of the head without contrast, and CT scan of the cervical spine without contrast. 06/01/23 16:25 We are still waiting for the urine specimen in order to determine the patient's urinalysis and urine drug screen. However, the patient states his ride is going to be here in 5 minutes and he wants to leave and will not provide a urine or wait for the results if he was able to urinate for us. I reviewed the remainder of the laboratory data results and based on those results, there is no acute, emergent findings. CT scan of both the head and cervical spine without contrast were interpreted by the radiologist. I reviewed the impression. The impression of CT scan of the head without contrast shows no acute intracranial abnormality. CT scan of the cervical spine without contrast shows no acute fracture or subluxation. 06/01/23 16:27 I discussed with the patient, the importance to complete the workup. He does not want to wait. He does not want to provide us with a urine specimen. He understands that there may be acute, emergent findings on this lab. Patient is awake, alert and oriented. He understands the risks of leaving prematurely AGAINST MEDICAL ADVICE and the benefits of staying to complete his workup. He will sign the AGAINST MEDICAL ADVICE form. Counseled pt/family regarding: lab results, diagnosis, need for follow-up, rad results Medical Desision Making - Diagnostic Testing Diagnostic test were ordered, analyzed, and reviewed by me: Yes Radiological Interpretation: Reviewed by me, Teleradiologist Report - Risk of complications Low Risk: Low risk of morbidity from additional dx testing or treatment - Departure Departure Disposition: AMA Clinical Impression: Seizure Condition: Stable Critical Care Time: No Referrals: DOCTOR,NO FAMILY [NON-STAFF PHY W/O PRIVILEGES] - Follow up/PCP as directed Additional Instructions: Call your primary care provider tomorrow, 06/01/2021, to make arrangements for follow-up appointment in 48 hours. Return to the emergency department if symptoms recur. Avoid marijuana use and any use of illicit drugs.
[2023-06-01 15:28] VITALS: TEMP 97.2
[2023-06-01] MEDS ORDERED: Sodium Chloride 0.9% 1000 ML 1,000 ML IV STA (15:30)
[2023-06-01 15:44] LABS: Absolute Neutrophil Ct (ANC) 1.79 x10^3/uL (1.4-6.9); BASOPHIL % 0.8 % (0.0-0.4); Basophil (Absolute #) 0.03 x10^3/uL (0-0.4); Eosinophil % 0.5 % (0.00-5.0); Eosinophil (Absolute #) 0.02 x10^3/uL (0-0.5); Hematocrit 40.9 % (42-50); Hemoglobin 13.2 g/dL (12.5-18.0); IMMATURE GRAN # 0.01 x10^3u/L (0.00-0.03); IMMATURE GRAN % 0.3 % (0.00-0.4); Lymphocyte (Absolute #) 1.63 x10^3/uL (1.0-4.6); Lymphocytes % 41.2 % (24.0-44.0); Mean Cell Volume 90.5 fL (78-100); Mean Corpuscular Hemoglobin 29.2 pg (26-32); Mean Corpuscular Hgb Concent. 32.3 g/dL (32-36); Mean Platelet Volume 8.2 fL (7.5-11.0); Monocyte (Absolute #) 0.48 x10^3/uL (0.0-1.3); Monocytes % 12.1 % (0.0-12.0); Neutrophil % 45.1 % (36.0-66.0); Platelet Count 285 x10^3/uL (150-450); Red Blood Count 4.52 x10^6/uL (4.1-5.6); Red Cell Distribution Width 14.4 % (11.5-14.0)
[2023-06-01 15:58] LABS: ACETAMINOPHEN < 10 ug/ml (10-30); ALBUMIN 4.5 g/dL (3.5-5.0); ANION GAP 18.1 MEQ/L (5-15); BILIRUBIN,TOTAL 0.4 mg/dL (0.2-1.3); Calcium 9.1 mg/dL (8.4-10.2); Creatinine 1 0.88 mg/dL (0.66-1.25); EST GLOMERULAR FILTRATION RATE 116.4 ML/MIN; ETHYL ALCOHOL < 10 mg/dL (0-10); Potassium 3.7 mmol/L (3.5-5.1); SALICYLATE < 1.0 mg/dL (2-20)
[2023-06-01 16:06] VITALS: O2SAT 97
--- NOTE | 2023-06-01 16:21 | XRAY ---
Indication: Seizure. Status post fall. Multiple contiguous axial images obtained through the head without contrast. Comparison: March 16, 2023 Normal appearing brain parenchyma, ventricles, and bony calvarium. Impression: Continued normal CT head without contrast exam.
--- NOTE | 2023-06-01 16:23 | XRAY ---
Indication: Seizure. Status post fall. Multiple contiguous axial images obtained through the cervical spine. Sagittal and coronal reformatted images obtained. Comparison: None Axial images negative for acute fracture, suspicious bony lesions, or spinal canal stenosis. Facets are symmetric. Sagittal and coronal reformatted images demonstrates mild lordotic reversal, positional versus paraspinal spasm. No acute compression fracture, subluxation, or jumped facet. Normal appearing craniocervical junction. Visualized noncontrasted soft tissues are unremarkable. Lung apices demonstrates subpleural cystic changes. Impression: 1. Lordotic reversal, positional versus paraspinal spasm. Negative acute fracture/subluxation. 2. Incidental biapical subpleural cystic changes.
[2023-06-01 16:32] VITALS: BP 121/84; PULSE 80; RESP 16
== END 2023-06-01 16:48 | disposition left against medical advice (07) ==
LOC: ED 15:18
DX: R56.9 Unspecified convulsions (principal); R53.83 Other fatigue; Z72.0 Tobacco use; Z59.00 Homelessness unspecified; Z82.0 Family history of epilepsy and other diseases of the nervous system
CPT/HCPCS: 36415; 70450; 72125; 80053; 80143; 80179; 82077; 84484; 85025; 93005; 93041; 94760; 99284

== ENCOUNTER 2023-06-01 17:54 | Emergency (ER) | payer OTHER ==
--- NOTE | 2023-06-01 17:57 | ERPHSYRPT ---
- History of Present Illness Time Seen by Provider: 06/01/23 17:57 Source: patient, EMS Exam Limitations: no limitations Physician History: This is a 32-year-old white male patient who just left our emergency department AGAINST MEDICAL ADVICE after he had a seizure. He did not stay to complete the workup. The patient went home and had another seizure and the paramedics brought him into the emergency department a second time within the last few hours. He denies chest pain. He denies headache. He did not soil himself. He has no abdominal pain. He has no shortness of breath. The patient states that he thinks it is because he has not been sleeping the last 2-3 nights. He states he gave a urine specimen during the last visit 2 to 3 hours ago. I will check this. If he has given us a urine to check for urinalysis and urine drug triage, I will not repeat all the studies again since they are only 2 hours old. Timing/Duration: today Severity: mild Character of Deficits: none Deficits: no difficulties Baseline/Normal Cognition: alert 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 Current Cognition: alert 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 Baseline Gait: walks w/o assistance Associated Symptoms: seizures Allergies/Adverse Reactions: No Known Drug Allergies Allergy (Verified 05/12/23 12:20) Hx Tetanus, Diphtheria Vaccination/Date Given: Yes Hx Influenza Vaccination/Date Given: No Hx Pneumococcal Vaccination/Date Given: No Travel Risk - International Travel Have you traveled outside of the country in past 3 weeks: No - Emerging Infectious Disease Are you exhibiting symptoms associated with any current EIDs: No - Review of Systems Constitutional: No Symptoms Eyes: No Symptoms Ears, Nose, & Throat: No Symptoms Respiratory: No Symptoms Cardiac: No Symptoms Abdominal/Gastrointestinal: No Symptoms Genitourinary Symptoms: No Symptoms Musculoskeletal: No Symptoms Skin: No Symptoms Neurological: Seizure Psychological: No Symptoms Endocrine: No Symptoms Hematologic/Lymphatic: No Symptoms Immunological/Allergic: No Symptoms All Other Systems: Reviewed and Negative - Past Medical History Pertinent Past Medical History: Yes Neurological History: Seizures Psycho-Social History: Attention Deficit Disorder Other Medical History: States his only medical history is being attacked/biten by a pack of dogs when he was a child and ADHD - Past Surgical History Past Surgical History: No - Social History Smoking Status: Current some day smoker Exposure to second hand smoke: No Drug Use: marijuana Patient Lives Alone: Yes (homeless) - Nursing Vital Signs Nursing Vital Signs: Initial Vital Signs Temperature 97.4 F 06/01/23 17:55 Pulse Rate 109 H 06/01/23 17:55 Respiratory Rate 20 06/01/23 17:55 Blood Pressure 112/60 06/01/23 17:55 O2 Sat by Pulse Oximetry 97 06/01/23 17:55 Pain Scale Pain Intensity 0 - [place] Coma Scale Best Eye Response (Stacy): (1) no response Best Verbal Response ([place]): (5) oriented Best Motor Response ([place]): (6) obeys commands [place] Total: 12 - Physical Exam General Appearance: no apparent distress, alert, anxiety, thin Eye Exam: bilateral eye: normal inspection, PERRL, EOMI Ears, Nose, Throat Exam: normal ENT inspection, moist mucous membranes Neck Exam: normal inspection, non-tender, supple, full range of motion Respiratory: normal breath sounds, lungs clear, airway intact, No chest tenderness, No respiratory distress Cardiovascular: regular rate/rhythm, normal heart sounds, normal peripheral pulses Gastrointestinal: soft, normal bowel sounds, No tenderness Rectal Exam: not done Back Exam: normal inspection, normal range of motion, No CVA tenderness, No vertebral tenderness Extremity Exam: normal inspection, normal range of motion, pelvis stable 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, 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, 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 Exam: normal hearing, normal speech, PERRL, tongue midline Coordination/Gait: normal finger to nose, normal gait Motor/Sensory: no motor deficit, no sensory deficit Skin Exam: normal color, warm, dry SpO2 Interpretation: normal O2 Delivery: Room Air - Course Nursing assessment & vital signs reviewed: Yes Ordered Tests: Active Orders 24 hr Category Date Time Status AMA [Release AMA] OM.NOW Care 06/01/23 19:47 Active EKG-ER Only STAT Care 06/01/23 17:57 Active IV Insertion STAT Care 06/01/23 17:57 Active Pulse Oximetry (ED) STAT Care 06/01/23 17:57 Active ACO SDOH Referral ROUTINE Cons 06/01/23 18:01 Active CULTURE,URINE Stat Lab 06/01/23 19:16 Received UA W/RFX UR CULTURE Stat Lab 06/01/23 19:16 Completed Urine Triage Profile Stat Lab 06/01/23 19:16 Results Medication Summary Discontinued Medications Generic Name Dose Route Start Last Admin Trade Name Freq PRN Reason Stop Dose Admin Lorazepam 1 mg 06/01/23 17:57 06/01/23 18:07 Lorazepam 2 Mg/1 Ml 2 Mg Vial IV 06/01/23 17:58 1 mg STAT ONE Administration Lorazepam Confirm 06/01/23 18:06 Lorazepam 2 Mg/1 Ml 2 Mg Vial Administered 06/01/23 18:07 Dose 2 mg .ROUTE .STK-MED ONE Ondansetron HCl 4 mg 06/01/23 17:57 06/01/23 18:07 Ondansetron Hcl 4 Mg/2 Ml Vial IV 06/01/23 17:58 4 mg STAT ONE Administration Ondansetron HCl Confirm 06/01/23 18:06 Ondansetron Hcl 4 Mg/2 Ml Vial Administered 06/01/23 18:07 Dose 4 mg .ROUTE .STK-MED ONE Lab/Rad Data: Laboratory Results 06/01/23 06/01/23 Range/Units 19:16 19:16 Urine Color Yellow (Yellow) Urine Appearance Clear (Clear) Urine pH 6.0 (4.6-8.0) Ur Specific Red [place] 1.015 (1.005-1.030) Urine Protein 30 (Negative) Urine Glucose (UA) Negative (Negative) mg/dL Urine Ketones Trace A (Negative) Urine Blood Trace (Negative) Urine Nitrite Negative (Negative) Urine Bilirubin Negative (Negative) Urine Urobilinogen 0.2 (0.2) mg/dL Ur Leukocyte Esterase Negative (Negative) U Hyaline Cast (Auto) 3-5 A (0-2) /LPF Urine Microscopic RBC 0-2 (0-5) /HPF Urine Microscopic WBC 0-2 (0-5) /HPF Ur Epithelial Cells None Seen (None Seen) /HPF Urine Bacteria None Seen (None Seen) /HPF Granular Casts 0-2 A (None Seen) /LPF Urine Culture Reflexed YES (NO) Urine Opiates Level NEGATIVE (NEGATIVE) Ur Methadone NEGATIVE (NEGATIVE) Urine Barbiturates NEGATIVE (NEGATIVE) Ur Phencyclidine (PCP) NEGATIVE (NEGATIVE) Urine Amphetamine Pending U Benzodiazepine Level NEGATIVE (NEGATIVE) Urine Cocaine NEGATIVE (NEGATIVE) Urine Marijuana (THC) POSITIVE A (NEGATIVE) - Progress Progress: unchanged Progress Note: 06/01/23 18:24 This patient's medical issue is 1 of low to moderate complexity. This patient left AGAINST MEDICAL ADVICE. He did not want a wait for the total, complete results of his workup. He left this emergency department approximately 2 hours ago. I will make sure that the urine triage results and urinalysis results have been completed. We are replacing an intravenous line and providing him with Ativan intravenously. I will also obtain a teleneurology consultation. 06/01/23 19:51 This patient's laboratory data results were interpreted by me. His urinalysis shows some mild dehydration. Patient had received a liter of fluid at the time of obtaining this urinalysis. The amphetamine level is pending and this patient and the urine also tested positive for marijuana. This patient is awake alert oriented. He is not suicidal. He is not homicidal. He understands the risk of leaving AGAINST MEDICAL ADVICE. He did so a few hours ago. He does not want to have a teleneurology consultation. He is leaving AGAINST MEDICAL ADVICE again. I will send prescription remotely to his pharmacy for Keppra for 1 weeks supply. Counseled pt/family regarding: lab results, diagnosis, need for follow-up Medical Desision Making - Diagnostic Testing Diagnostic test were ordered, analyzed, and reviewed by me: Yes - Risk of complications The pt has a mod risk of morbidity or mortality based on: Need for prescription drug management - Departure Departure Disposition: AMA Clinical Impression: Seizure Condition: Stable Critical Care Time: No Referrals: PJ HER MD [Primary Care Provider] - Follow up/PCP as directed Additional Instructions: You must contact your primary care provider tomorrow, 06/02/2023. You must be evaluated within 48 hours for further management of these seizures. Avoid illicit drug use. Prescriptions: Levetiracetam [Keppra] 500 mg PO BID #14 tablet
[2023-06-01 18:01] VITALS: TEMP 97.4
[2023-06-01] MEDS ORDERED: Zofran 4 MG/2 ML VIAL ONE (18:06)
[2023-06-01] MEDS ORDERED: Ativan 2 MG/1 ML VIAL ONE (18:06)
[2023-06-01] MEDS: Zofran 4 MG/2 ML VIAL IV ONE (18:07)
[2023-06-01] MEDS: Ativan 2 MG/1 ML VIAL IV ONE (18:07)
[2023-06-01 19:32] VITALS: O2SAT 98
[2023-06-01 19:33] VITALS: BP 125/72; PULSE 64; RESP 16
[2023-06-01 19:41] LABS: Appearance Clear (Clear); Bacteria None Seen /HPF (None Seen); Bilirubin Negative (Negative); Blood Trace (Negative); Epithelial Cells None Seen /HPF (None Seen); Glucose, Urine Negative (Negative); Ketones Trace (Negative); Leukocyte Esterase Negative (Negative); Nitrite Negative (Negative); Protein,Urine Dip 30 (Negative); RBC 0-2 /HPF (0-5); Specific Gravity 1.015 (1.005-1.030); Urobilinogen 0.2 mg/dL (0.2); WBC 0-2 /HPF (0-5)
[2023-06-01 19:42] LABS: ADD URINE CULTURE? YES (NO); Barbiturate,Urine NEGATIVE (NEGATIVE); Cocaine,Urine NEGATIVE (NEGATIVE); Granular Casts 0-2 /LPF (None Seen); Methadone,Urine NEGATIVE (NEGATIVE); Opiate,Urine NEGATIVE (NEGATIVE); PCP,Urine NEGATIVE (NEGATIVE); THC,Urine POSITIVE (NEGATIVE)
[2023-06-01 19:48] LABS: Benzodiazepine,Urine NEGATIVE (NEGATIVE)
[2023-06-01 20:17] LABS: Amphetamine,Urine POSITIVE (NEGATIVE)
== END 2023-06-01 19:57 | disposition left against medical advice (07) ==
LOC: ED 17:54
DX: R56.9 Unspecified convulsions (principal); Z72.0 Tobacco use; Z79.899 Other long term (current) drug therapy; Z59.00 Homelessness unspecified
CPT/HCPCS: 36000; 80307; 81001; 87086; 93005; 94760; 96374; 96375; 99284; J2060; J2405

== ENCOUNTER 2023-07-03 10:42 | Emergency (ER) | payer OTHER ==
[2023-07-03 10:47] VITALS: BP 97/65; PULSE 87; RESP 18; TEMP 97
[2023-07-03] MEDS ORDERED: Sodium Chloride 0.9% 1000 ML 1,000 ML ONE (11:05)
[2023-07-03] MEDS: Sodium Chloride 0.9% 1000 ML 1,000 ML IV STA (11:06)
[2023-07-03] MEDS ORDERED: Keppra 500 MG/5 ML ONE ×2 (11:26→11:27)
[2023-07-03] MEDS ORDERED: Sodium Chloride 0.9% 100 ML ONE (11:27)
--- NOTE | 2023-07-03 11:30 | ERPHSYRPT ---
- History of Present Illness Time Seen by Provider: 07/03/23 10:45 Source: patient, EMS, old records Exam Limitations: clinical condition Patient Subjective Stated Complaint: pt here for a possible seizure at work today, was found at [employer] in bathroom passed out, pt states he does not know what happened. pt has hx of seizures and drug use. pt was given a total of 4mg of narcan which ems states they think helped. pt co pain to head. Triage Nursing Assessment: pt alert,oriented. arrived per ems, skin w/d/p. has contusion to right side of head. skin w/d/p, moves all ext well, pt does not remember events, Physician History: This is a 32-year-old white male patient with known history of substance abuse and history of seizure disorder who has been noncompliant with his medication and follow-up instructions. He has been seen in this emergency department several times for seizure episodes. The patient was brought into the emergency department by paramedics. 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 It is presumed that the patient had a seizure but it was not witnessed. Patient was given a total of 4 mg of Narcan. According to individuals providing the Narcan, after the 2 separate dosages of 2 mg Narcan, the patient seemed more arousable. Patient arrives to the emergency department with a cervical collar in place and is answering questions. He did hit his head and there is a swelling in the right frontal parietal region. There was no soiling of his pants with stool or urine. Timing/Duration: today Severity: moderate Character of Deficits: none Deficits: no difficulties Baseline/Normal Cognition: alert 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 Current Cognition: alert 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 Baseline Gait: walks w/o assistance Associated Symptoms: headache (The area of the contusion and swelling) Allergies/Adverse Reactions: No Known Drug Allergies Allergy (Verified 07/03/23 10:43) Home Medications: No Reportable Medications [No Reported Medications] 07/03/23 [History] Hx Tetanus, Diphtheria Vaccination/Date Given: Yes Hx Influenza Vaccination/Date Given: No Hx Pneumococcal Vaccination/Date Given: No Immunizations Up to Date: Yes Travel Risk - International Travel Have you traveled outside of the country in past 3 weeks: No - Emerging Infectious Disease Are you exhibiting symptoms associated with any current EIDs: No - Review of Systems Constitutional: No Symptoms Eyes: No Symptoms Ears, Nose, & Throat: No Symptoms Respiratory: No Symptoms Cardiac: No Symptoms Abdominal/Gastrointestinal: No Symptoms Genitourinary Symptoms: No Symptoms Musculoskeletal: No Symptoms Skin: Other (Contusion swelling right side frontoparietal region) Psychological: No Symptoms Endocrine: No Symptoms Hematologic/Lymphatic: No Symptoms Immunological/Allergic: No Symptoms All Other Systems: Reviewed and Negative - Past Medical History Pertinent Past Medical History: Yes Neurological History: Seizures Psycho-Social History: Attention Deficit Disorder Other Medical History: States his only medical history is being attacked/biten by a pack of dogs when he was a child and ADHD - Past Surgical History Past Surgical History: No - Social History Smoking Status: Current some day smoker Exposure to second hand smoke: Yes Drug Use: marijuana Patient Lives Alone: Yes (homeless) - Nursing Vital Signs Nursing Vital Signs: Initial Vital Signs Temperature 97 F 07/03/23 10:45 Pulse Rate 87 07/03/23 10:45 Respiratory Rate 18 07/03/23 10:45 Blood Pressure 97/65 07/03/23 10:45 O2 Sat by Pulse Oximetry 97 07/03/23 10:45 Pain Scale Pain Intensity 4 - [place] Coma Scale Best Eye Response ([place]): (4) open spontaneously Best Verbal Response ([place]): (5) oriented Best Motor Response ([place]): (6) obeys commands [place] Total: 15 - Physical Exam General Appearance: no apparent distress, lethargy (Very mildly lethargic.? Postictal) Eye Exam: bilateral eye: normal inspection, PERRL, EOMI Ears, Nose, Throat Exam: normal ENT inspection, moist mucous membranes Neck Exam: normal inspection, non-tender, other (Cervical collar in place) Respiratory: normal breath sounds, lungs clear, airway intact, No chest tend erness, No respiratory distress Cardiovascular: regular rate/rhythm, normal heart sounds, normal peripheral pulses Gastrointestinal: soft, normal bowel sounds, No tenderness Rectal Exam: not done Back Exam: normal inspection, normal range of motion, No CVA tenderness, No vertebral tenderness Extremity Exam: normal inspection, normal range of motion, pelvis stable 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, 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, 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 Exam: normal hearing, normal speech, PERRL, tongue midline (Patient is neurologically intact) Skin Exam: normal color, warm, dry, other (Right frontal parietal hematoma) SpO2 Interpretation: normal SpO2: 97 O2 Delivery: Room Air - Course Nursing assessment & vital signs reviewed: Yes EKG Interpreted by Me: RATE (84), Sinus Rhythm, Right Cope Deviation (Borderline), NORMAL INTERVALS, NORMAL QRS, NORMAL ST-T, Other (No acute ischemic changes on today's twelve-lead EKG.) Ordered Tests: Active Orders 24 hr Category Date Time Status EKG-ER Only STAT Care 07/03/23 10:57 Active IV Insertion STAT Care 07/03/23 10:57 Active ACO SDOH Referral ONCE Cons 07/03/23 10:56 Active CERVICAL SPINE WO CONTRAST [CT] Stat Exams 07/03/23 11:00 Completed HEAD WITHOUT CONTRAST [CT] Stat Exams 07/03/23 11:00 Completed ACETAMINOPHEN Stat Lab 07/03/23 11:35 Completed CBC W DIFF Stat Lab 07/03/23 11:35 Completed CMP Stat Lab 07/03/23 11:35 Completed ETHYL ALCOHOL Stat Lab 07/03/23 11:35 Completed SALICYLATE Stat Lab 07/03/23 11:35 Completed UA W/RFX UR CULTURE Stat Lab 07/03/23 10:58 Ordered Urine Triage Profile Stat Lab 07/03/23 10:58 Ordered Medication Summary Discontinued Medications Generic Name Dose Route Start Last Admin Trade Name Freq PRN Reason Stop Dose Admin Sodium Chloride 1,000 mls @ 999 mls/hr 07/03/23 10:57 07/03/23 12:28 Sodium Chloride 0.9% 1000 Ml IV 07/03/23 11:57 Infused .Q1H1M STA Infusion Sodium Chloride Confirm 07/03/23 11:05 Sodium Chloride 0.9% 1000 Ml Administered 07/03/23 11:06 Dose 1,000 mls @ ud .ROUTE .STK-MED ONE Levetiracetam 500 mg/ Dextrose 105 mls @ 400 mls/hr 07/03/23 11:22 07/03/23 11:33 IV 07/03/23 11:37 400 mls/hr STAT ONE Administration Sodium Chloride Confirm 07/03/23 11:27 Sodium Chloride 0.9% Administered 07/03/23 11:28 Dose 100 mls @ ud .ROUTE .STK-MED ONE Levetiracetam Confirm 07/03/23 11:26 Levetiracetam 500 Mg/5 Ml Vial Administered 07/03/23 11:27 Dose 500 mg .ROUTE .[facility] ONE Levetiracetam Confirm 07/03/23 11:27 Levetiracetam 500 Mg/5 Ml Vial Administered 07/03/23 11:28 Dose 500 mg .ROUTE .FlitK-MED ONE Lab/Rad Data: Laboratory Result Diagrams 07/03/23 11:35 07/03/23 11:35 Laboratory Results 07/03/23 07/03/23 Range/Units 11:35 11:35 WBC 3.1 L (4.0-10.5) x10^3/uL RBC 4.63 (4.1-5.6) x10^6/uL Hgb 13.4 (12.5-18.0) g/dL Hct 40.7 L (42-50) % MCV 87.9 (78-100) fL MCH 28.9 (26-32) pg MCHC 32.9 (32-36) g/dL RDW 13.4 (11.5-14.0) % Plt Count 265 (150-450) x10^3/uL MPV 8.7 (7.5-11.0) fL Gran % 41.1 (36.0-66.0) % Immature Gran % (Auto) 0.3 (0.00-0.4) % Nucleat RBC Rel Count 0.0 (0.00-0.1) % Eos # (Auto) 0.07 (0-0.5) x10^3/uL Immature Gran # (Auto) 0.01 (0.00-0.03) x10^3u/L Absolute Lymphs (auto) 1.32 (1.0-4.6) x10^3/uL Absolute Monos (auto) 0.40 (0.0-1.3) x10^3/uL Absolute Nucleated RBC 0.00 (0.00-0.01) x10^3u/L Lymphocytes % 42.4 (24.0-44.0) % Monocytes % 12.9 H (0.0-12.0) % Eosinophils % 2.3 (0.00-5.0) % Basophils % 1.0 (0.0-0.4) % Absolute Granulocytes 1.28 L (1.4-6.9) x10^3/uL Basophils # 0.03 (0-0.4) x10^3/uL Sodium 141 (135-145) mmol/L Potassium 4.0 (3.5-5.1) mmol/L Chloride 111 H (98-107) mmol/L Carbon Dioxide 21 L (22-30) mmol/L Anion Gap 12.1 (5-15) MEQ/L BUN 8 L (9-20) mg/dL Creatinine 0.86 (0.66-1.25) mg/dL Estimated GFR 117.3 ML/MIN Glucose 64 L (74-106) mg/dL Calcium 8.5 (8.4-10.2) mg/dL Total Bilirubin 0.40 (0.2-1.3) mg/dL AST 26 (17-59) U/L ALT 19 (0-50) U/L Alkaline Phosphatase 51 (38-126) U/L Serum Total Protein 7.3 (6.3-8.2) g/dL Albumin 4.1 (3.5-5.0) g/dL Salicylates < 1.0 L (2-20) mg/dL Acetaminophen < 10 L (10-30) ug/ml Ethyl Alcohol < 10 (0-10) mg/dL - Progress Progress: improved Progress Note: 07/03/23 11:31 My medical decision making and the assignment of moderate complexity to this patient's medical issue today is based on review of the patient's past medical history, review of the patient's medication list, review the patient drug allergy list, history present illness and physical findings on examination. The workup in this patient includes placement of an intravenous line, infusion of normal saline solution, infusion of 500 mg intravenous Keppra, urinalysis, urine drug screen, alcohol level, acetaminophen level, salicylate level, CBC, CMP, prolactin level, CK level, CT scan of the head and cervical spine without contrast. 07/03/23 11:38 Differential diagnosis includes intracranial abnormality, electrolyte abnormalities, illicit drug use, medication noncompliance, breakthrough seizure, 07/03/23 11:47 CT scan of the cervical spine was interpreted by the radiologist and I reviewed the impression. The impression states negative for acute fracture or subluxation. CT scan of the head without contrast was interpreted by the radiologist. There is new right parietal scalp hematoma. Otherwise the CT scan of the head without contrast is negative 07/03/23 12:06 I interpreted the patient's laboratory data results except for the urinalysis and urine drug triage which we have not received urine specimen 4. The patient has leukopenia. 07/03/23 12:37 Patient is adamant about signing out AGAINST MEDICAL ADVICE. He understands the risk benefits and alternatives to signing out versus continue observation to complete the workup. He has signed out AGAINST MEDICAL ADVICE the last 2 visits here in our emergency department. He is going to sign the AGAINST MEDICAL ADVICE form. Patient is awake alert and oriented. Counseled pt/family regarding: lab results, diagnosis, need for follow-up, rad results Medical Desision Making - Independent Historian Additional History obtained from: Barrel Endshaker Adjuster/EMT - Diagnostic Testing Diagnostic test were ordered, analyzed, and reviewed by me: Yes Radiological Interpretation: Reviewed by me, Teleradiologist Report - Departure Departure Disposition: AMA Clinical Impression: Leukopenia, Seizure, Patient noncompliance Condition: Stable Critical Care Time: No Referrals: PJ HER MD [Primary Care Provider] - Follow up/PCP as directed Additional Instructions: Return to an emergency department if symptoms recur.
[2023-07-03] MEDS: Keppra 500 MG/5 ML*** 500 MG in D5w 100ML Mini Bag 100 ML 100 ML IV ONE (11:33)
--- NOTE | 2023-07-03 11:40 | XRAY ---
Indication: Head injury following fall. Multiple contiguous axial images obtained through the head without contrast. Comparison: June 01, 2023 New small right anterior parietal scalp hematoma. Normal appearing brain parenchyma, ventricles, and bony calvarium. Visualized paranasal sinuses and mastoid air cells are clear. Impression: New right parietal scalp hematoma. Otherwise continued normal CT head without contrast exam.
[2023-07-03 11:41] LABS: Absolute Neutrophil Ct (ANC) 1.28 x10^3/uL (1.4-6.9); Basophil (Absolute #) 0.03 x10^3/uL (0-0.4); Eosinophil % 2.3 % (0.00-5.0); Eosinophil (Absolute #) 0.07 x10^3/uL (0-0.5); Hematocrit 40.7 % (42-50); Hemoglobin 13.4 g/dL (12.5-18.0); IMMATURE GRAN # 0.01 x10^3u/L (0.00-0.03); IMMATURE GRAN % 0.3 % (0.00-0.4); Lymphocyte (Absolute #) 1.32 x10^3/uL (1.0-4.6); Lymphocytes % 42.4 % (24.0-44.0); Mean Cell Volume 87.9 fL (78-100); Mean Corpuscular Hemoglobin 28.9 pg (26-32); Mean Corpuscular Hgb Concent. 32.9 g/dL (32-36); Mean Platelet Volume 8.7 fL (7.5-11.0); Monocytes % 12.9 % (0.0-12.0); Neutrophil % 41.1 % (36.0-66.0); Platelet Count 265 x10^3/uL (150-450); Red Blood Count 4.63 x10^6/uL (4.1-5.6); Red Cell Distribution Width 13.4 % (11.5-14.0); White Blood Count 3.1 x10^3/uL (4.0-10.5)
--- NOTE | 2023-07-03 11:42 | XRAY ---
Indication: Head injury following fall. Multiple contiguous axial images obtained through the cervical spine. Sagittal and coronal reformatted images obtained. Comparison: June 01, 2023. Axial images again negative for acute fracture, suspicious bony lesions, or spinal canal stenosis. Facets are symmetric. Sagittal and coronal reformatted images again demonstrate minimal lordotic reversal, positional versus paraspinal spasm. No acute compression fracture, subluxation, or jumped facet. Normal appearing craniocervical junction. Visualized noncontrasted soft tissues again unremarkable. Lung apices again demonstrate subpleural cystic changes. Impression: 1. Continue negative acute fracture/subluxation. 2. Again cervical lordotic reversal and biapical subpleural cystic changes.
[2023-07-03 11:57] LABS: ACETAMINOPHEN < 10 ug/ml (10-30); ALBUMIN 4.1 g/dL (3.5-5.0); ALKALINE PHOSPHATASE 51 U/L (38-126); ANION GAP 12.1 MEQ/L (5-15); BLOOD UREA NITROGEN 8 mg/dL (9-20); CHLORIDE 111 mmol/L (98-107); Calcium 8.5 mg/dL (8.4-10.2); Carbon Dioxide 21 mmol/L (22-30); Creatinine 1 0.86 mg/dL (0.66-1.25); EST GLOMERULAR FILTRATION RATE 117.3 ML/MIN; ETHYL ALCOHOL < 10 mg/dL (0-10); Glucose 64 mg/dL (74-106); SALICYLATE < 1.0 mg/dL (2-20); SGOT/AST 26 U/L (17-59); SGPT/ALT 19 U/L (0-50); SODIUM 141 mmol/L (135-145); Total Protein 7.3 g/dL (6.3-8.2)
[2023-07-03 12:39] VITALS: O2SAT 97
[2023-07-03 13:40] LABS: Appearance Clear (Clear); Bacteria None Seen /HPF (None Seen); Bilirubin Negative (Negative); Blood Negative (Negative); Epithelial Cells None Seen /HPF (None Seen); Glucose, Urine Negative (Negative); Hyaline Casts NONE SEEN /LPF (0-2); Ketones Negative (Negative); Leukocyte Esterase Negative (Negative); Nitrite Negative (Negative); Ph 5.5 (4.6-8.0); Protein,Urine Dip 30 (Negative); RBC 0-2 /HPF (0-5); Specific Gravity 1.015 (1.005-1.030); Urobilinogen 0.2 mg/dL (0.2); WBC 0-2 /HPF (0-5)
[2023-07-03 13:41] LABS: ADD URINE CULTURE? NO (NO)
[2023-07-03 14:02] LABS: Amphetamine,Urine POSITIVE (NEGATIVE); Barbiturate,Urine NEGATIVE (NEGATIVE); Benzodiazepine,Urine NEGATIVE (NEGATIVE); Cocaine,Urine NEGATIVE (NEGATIVE); PCP,Urine NEGATIVE (NEGATIVE); THC,Urine POSITIVE (NEGATIVE)
[2023-07-03 14:05] LABS: Methadone,Urine NEGATIVE (NEGATIVE)
[2023-07-03 14:21] LABS: Opiate,Urine NEGATIVE (NEGATIVE)
== END 2023-07-03 12:42 | disposition left against medical advice (07) ==
LOC: ED 10:42
DX: G40.909 Epilepsy, unspecified, not intractable, without status epilepticus (principal); D72.819 Decreased white blood cell count, unspecified; Z91.148 Patient's other noncompliance with medication regimen for other reason; Z91.199 Patient's noncompliance with other medical treatment and regimen due to unspecified reason; Z72.0 Tobacco use; Z59.00 Homelessness unspecified
CPT/HCPCS: 36000; 36415; 70450; 72125; 80053; 80143; 80179; 80307; 81001; 82077; 85025; 93005; 96374; 99284; J1953

== ENCOUNTER 2023-07-10 12:24 | Emergency (ER) | payer OTHER ==
--- NOTE | 2023-07-10 12:32 | ERPHSYRPT ---
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 The seizure was not visualized. Patient does have a history of alcohol and methamphetamine abuse. He has been to our facility multiple times. Patient arrives to the emergency department answering a few questions but obviously is ill with nausea and vomiting. He is moving all his extremities. Patient states he is not suicidal or homicidal. He also is not taking his medication as prescribed. He has left this hospital emergency department multiple times AGAINST MEDICAL ADVICE. Patient did not soil his pants with stool or urine Timing/Duration: today Severity: moderate Character of Deficits: none Deficits: no difficulties Baseline/Normal Cognition: alert 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 Current Cognition: alert 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 Baseline Gait: walks w/o assistance Associated Symptoms: nausea, vomiting, weakness Allergies/Adverse Reactions: No Known Drug Allergies Allergy (Verified 07/10/23 13:29) Home Medications: No Reportable Medications [No Reported Medications] 07/03/23 [History] Hx Tetanus, Diphtheria Vaccination/Date Given: Yes Hx Influenza Vaccination/Date Given: No Hx Pneumococcal Vaccination/Date Given: No Travel Risk - International Travel Have you traveled outside of the country in past 3 weeks: No - Emerging Infectious Disease Are you exhibiting symptoms associated with any current EIDs: Yes Symptoms: Vomitting - Review of Systems Constitutional: Weakness Eyes: No Symptoms Ears, Nose, & Throat: No Symptoms Respiratory: No Symptoms Cardiac: No Symptoms Abdominal/Gastrointestinal: Nausea, Vomiting Genitourinary Symptoms: No Symptoms Musculoskeletal: No Symptoms Skin: No Symptoms Neurological: Seizure (Not witnessed) Psychological: No Symptoms Endocrine: No Symptoms Hematologic/Lymphatic: No Symptoms Immunological/Allergic: No Symptoms All Other Systems: Reviewed and Negative - Past Medical History Pertinent Past Medical History: Yes Neurological History: Seizures Psycho-Social History: Attention Deficit Disorder Other Medical History: States his only medical history is being attacked/biten by a pack of dogs when he was a child and ADHD - Past Surgical History Past Surgical History: No - Social History Smoking Status: Current some day smoker Exposure to second hand smoke: Yes Drug Use: marijuana Patient Lives Alone: Yes (homeless) - Nursing Vital Signs Nursing Vital Signs: Initial Vital Signs Temperature 97.7 F 07/10/23 12:27 Pulse Rate 88 07/10/23 12:27 Respiratory Rate 16 07/10/23 12:27 Blood Pressure 124/70 07/10/23 12:27 O2 Sat by Pulse Oximetry 98 07/10/23 12:27 Pain Scale Pain Intensity 0 - Stacy Coma Scale Best Eye Response (Stacy): (4) open spontaneously Best Verbal Response (Dorr): (5) oriented Best Motor Response (Stacy): (6) obeys commands Dorr Total: 15 - Physical Exam General Appearance: mild distress, alert, anxiety, thin Eye Exam: bilateral eye: normal inspection, PERRL, EOMI Ears, Nose, Throat Exam: normal ENT inspection, moist mucous membranes Neck Exam: normal inspection, non-tender, supple, full range of motion Respiratory: normal breath sounds, lungs clear, airway intact, No chest tenderness, No respiratory distress Cardiovascular: regular rate/rhythm, normal heart sounds, normal peripheral pulses Gastrointestinal: soft, normal bowel sounds, No tenderness Rectal Exam: not done Back Exam: normal inspection, normal range of motion, No CVA tenderness, No vertebral tenderness Extremity Exam: normal inspection, normal range of motion, pelvis stable Mental Status: 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, intoxicated appearance escort patients Exam: normal hearing, normal speech, PERRL Skin Exam: normal color, warm, dry SpO2 Interpretation: normal O2 Delivery: Room Air - Course Nursing assessment & vital signs reviewed: Yes Ordered Tests: Active Orders 24 hr Category Date Time Status Clean Catch Urine Specimen STAT Care 07/10/23 12:32 Active EKG-ER Only STAT Care 07/10/23 12:32 Active IV Insertion STAT Care 07/10/23 12:32 Active Pulse Oximetry (ED) STAT Care 07/10/23 12:32 Active HEAD WITHOUT CONTRAST [CT] Stat Exams 07/10/23 12:33 Completed CBC W DIFF Stat Lab 07/10/23 12:50 Completed CMP Stat Lab 07/10/23 12:50 Completed ETHYL ALCOHOL Stat Lab 07/10/23 12:50 Completed MAGNESIUM Stat Lab 07/10/23 12:50 Completed UA W/RFX UR CULTURE Stat Lab 07/10/23 12:33 Ordered Urine Triage Profile Stat Lab 07/10/23 12:33 Ordered Medication Summary Discontinued Medications Generic Name Dose Route Start Last Admin Trade Name Freq PRN Reason Stop Dose Admin Levetiracetam 500 mg/ Dextrose 105 mls @ 400 mls/hr 07/10/23 12:32 07/10/23 12:59 IV 07/10/23 12:47 400 mls/hr STAT ONE Administration Sodium Chloride 1,000 mls @ 999 mls/hr 07/10/23 12:32 07/10/23 14:48 Sodium Chloride 0.9% 1000 Ml IV 07/10/23 13:32 Infused .Q1H1M STA Infusion Sodium Chloride Confirm 07/10/23 12:52 Sodium Chloride 0.9% 1000 Ml Administered 07/10/23 12:53 Dose 1,000 mls @ ud .ROUTE .STK-MED ONE Dextrose Confirm 07/10/23 12:52 D5w 100ml Mini Bag 100 Ml Administered 07/10/23 12:53 Dose 100 mls @ ud IV .STK-MED ONE Lactated Ringer's 1,000 mls @ 999 mls/hr 07/10/23 13:29 07/10/23 14:17 Lactated Ringers IV 07/10/23 14:29 999 mls/hr .Q1H1M ONE Administration Lactated Ringer's Confirm 07/10/23 14:16 Lactated Ringers Administered 07/10/23 14:17 Dose 1,000 mls @ ud IV .STK-MED ONE Levetiracetam Confirm 07/10/23 12:51 Levetiracetam 500 Mg/5 Ml Vial Administered 07/10/23 12:52 Dose 500 mg .ROUTE .STK-MED ONE Lorazepam 1 mg 07/10/23 12:32 07/10/23 12:58 Lorazepam 2 Mg/1 Ml 2 Mg Vial IV 07/10/23 12:33 1 mg STAT ONE Administration Lorazepam Confirm 07/10/23 12:51 Lorazepam 2 Mg/1 Ml 2 Mg Vial Administered 07/10/23 12:52 Dose 2 mg .ROUTE .STK-MED ONE Ondansetron HCl 4 mg 07/10/23 12:32 07/10/23 12:54 Zofran 4 Mg/Udtablet Orally Disintegrating PO 07/10/23 12:33 4 mg STAT ONE Administration Ondansetron HCl Confirm 07/10/23 12:52 Zofran 4 Mg/Udtablet Orally Disintegrating Administered 07/10/23 12:53 Dose 4 mg .ROUTE .STK-MED ONE Lab/Rad Data: Laboratory Result Diagrams 07/10/23 12:50 07/10/23 12:50 Laboratory Results 07/10/23 07/10/23 07/10/23 Range/Units 13:00 12:50 12:50 WBC (4.0-10.5) x10^3/uL RBC (4.1-5.6) x10^6/uL Hgb (12.5-18.0) g/dL Hct (42-50) % MCV (78-100) fL MCH (26-32) pg MCHC (32-36) g/dL RDW (11.5-14.0) % Plt Count (150-450) x10^3/uL MPV (7.5-11.0) fL Gran % (36.0-66.0) % Immature Gran % (Auto) (0.00-0.4) % Nucleat RBC Rel Count (0.00-0.1) % Eos # (Auto) (0-0.5) x10^3/uL Immature Gran # (Auto) (0.00-0.03) x10^3u/L Absolute Lymphs (auto) (1.0-4.6) x10^3/uL Absolute Monos (auto) (0.0-1.3) x10^3/uL Absolute Nucleated RBC (0.00-0.01) x10^3u/L Lymphocytes % (24.0-44.0) % Monocytes % (0.0-12.0) % Eosinophils % (0.00-5.0) % Basophils % (0.0-0.4) % Absolute Granulocytes (1.4-6.9) x10^3/uL Basophils # (0-0.4) x10^3/uL Sodium 141 (135-145) mmol/L Potassium 4.2 (3.5-5.1) mmol/L Chloride 109 H (98-107) mmol/L Carbon Dioxide 15 L* (22-30) mmol/L Anion Gap 23.3 H (5-15) MEQ/L BUN 10 (9-20) mg/dL Creatinine 0.99 (0.66-1.25) mg/dL Estimated GFR 103.2 ML/MIN Glucose 132 H (74-106) mg/dL Calcium 9.4 (8.4-10.2) mg/dL Magnesium 2.2 (1.6-2.3) mg/dL Total Bilirubin 0.30 (0.2-1.3) mg/dL AST 38 (17-59) U/L ALT 34 (0-50) U/L Alkaline Phosphatase 60 (38-126) U/L Serum Total Protein 8.7 H (6.3-8.2) g/dL Albumin 5.1 H (3.5-5.0) g/dL Ethyl Alcohol < 10 (0-10) mg/dL Influenza Type A Ag NEGATIVE (NEGATIVE) Influenza Type B Ag NEGATIVE (NEGATIVE) RSV (PCR) NEGATIVE (NEGATIVE) SARS-CoV-2 (PCR) NEGATIVE (NEGATIVE) 07/10/23 Range/Units 12:50 WBC 12.9 H (4.0-10.5) x10^3/uL RBC 4.98 (4.1-5.6) x10^6/uL Hgb 14.4 (12.5-18.0) g/dL Hct 43.6 (42-50) % MCV 87.6 (78-100) fL MCH 28.9 (26-32) pg MCHC 33.0 (32-36) g/dL RDW 13.5 (11.5-14.0) % Plt Count 359 (150-450) x10^3/uL MPV 8.8 (7.5-11.0) fL Gran % 76.3 H (36.0-66.0) % Immature Gran % (Auto) 0.4 (0.00-0.4) % Nucleat RBC Rel Count 0.0 (0.00-0.1) % Eos # (Auto) 0.01 (0-0.5) x10^3/uL Immature Gran # (Auto) 0.05 H (0.00-0.03) x10^3u/L Absolute Lymphs (auto) 2.08 (1.0-4.6) x10^3/uL Absolute Monos (auto) 0.87 (0.0-1.3) x10^3/uL Absolute Nucleated RBC 0.00 (0.00-0.01) x10^3u/L Lymphocytes % 16.1 L (24.0-44.0) % Monocytes % 6.7 (0.0-12.0) % Eosinophils % 0.1 (0.00-5.0) % Basophils % 0.4 (0.0-0.4) % Absolute Granulocytes 9.84 H (1.4-6.9) x10^3/uL Basophils # 0.05 (0-0.4) x10^3/uL Sodium (135-145) mmol/L Potassium (3.5-5.1) mmol/L Chloride (98-107) mmol/L Carbon Dioxide (22-30) mmol/L Anion Gap (5-15) MEQ/L BUN (9-20) mg/dL Creatinine (0.66-1.25) mg/dL Estimated GFR ML/MIN Glucose (74-106) mg/dL Calcium (8.4-10.2) mg/dL Magnesium (1.6-2.3) mg/dL Total Bilirubin (0.2-1.3) mg/dL AST (17-59) U/L ALT (0-50) U/L Alkaline Phosphatase (38-126) U/L Serum Total Protein (6.3-8.2) g/dL Albumin (3.5-5.0) g/dL Ethyl Alcohol (0-10) mg/dL Influenza Type A Ag (NEGATIVE) Influenza Type B Ag (NEGATIVE) RSV (PCR) (NEGATIVE) SARS-CoV-2 (PCR) (NEGATIVE) - Progress Progress: improved, re-examined Progress Note: 07/10/23 12:31 My medical decision making and the assignment of moderate complexity to this patient's medical issue today is based on review of the patient's past medical history, review of the patient's medication list, history present illness and physical findings on examination. The workup in this patient includes placement of intravenous line, infusion normal saline solution, infusion of Zofran and Protonix intravenously, will also infuse a dose of Ativan and Keppra intravenously. Will order a twelve-lead EKG, CT scan of the head, CBC, CMP, ethyl alcohol level, magnesium level, urinalysis and urine drug triage. 07/10/23 12:32 Differential diagnosis includes intracranial abnormality, seizure breakthrough, illicit drug use, alcohol intoxication, electrolyte abnormalities 07/10/23 14:09 CT scan of the head without contrast was interpreted by the radiologist and I reviewed the impression. Impression states normal CT scan of the head without contrast. 07/10/23 15:18 Interpreted the patient's laboratory data results. We are still awaiting the urine specimen to have a urinalysis and urine drug triage run. After 3 hours, we asked the patient to provide us with a urine specimen and he is absolutely refusing to do so. He wishes to leave AGAINST MEDICAL ADVICE. He is aware that by leaving AGAINST MEDICAL ADVICE he is at risk for recurrent seizure which could lead to hypoxia, brain injury or even . He is aware and he desires to sign the AGAINST MEDICAL ADVICE form. Counseled pt/family regarding: lab results, diagnosis, need for follow-up, rad results Medical Desision Making - Diagnostic Testing Diagnostic test were ordered, analyzed, and reviewed by me: Yes Radiological Interpretation: Reviewed by me, Teleradiologist Report - Risk of complications The pt has a high risk of morbidity or mortality based on: Decision regarding hospitilization or escalation of hosp level of care - Departure Departure Disposition: AMA Clinical Impression: Breakthrough seizure, Noncompliance with medication regimen Condition: Stable Critical Care Time: No Referrals: PJ HER MD [Primary Care Provider] - Follow up/PCP as directed Additional Instructions: Return to the emergency department if symptoms recur. Take your prescribed medication as prescribed. Follow-up with your primary care provider on to make arranges to be seen in the next 3 to 5 days.
[2023-07-10 12:41] VITALS: TEMP 97.7
[2023-07-10] MEDS ORDERED: Ativan 2 MG/1 ML VIAL ONE (12:51)
[2023-07-10] MEDS ORDERED: Keppra 500 MG/5 ML ONE (12:51)
[2023-07-10] MEDS ORDERED: Sodium Chloride 0.9% 1000 ML 1,000 ML ONE (12:52)
[2023-07-10] MEDS ORDERED: D5w 100ML Mini Bag 100 ML 100 ML IV ONE (12:52)
[2023-07-10] MEDS ORDERED: ZOFRAN ODT 4 MG ONE (12:52)
[2023-07-10] MEDS: ZOFRAN ODT 4 MG PO ONE (12:54)
[2023-07-10] MEDS: Sodium Chloride 0.9% 1000 ML 1,000 ML IV STA (12:56)
[2023-07-10] MEDS: Ativan 2 MG/1 ML VIAL IV ONE (12:58)
[2023-07-10] MEDS: Keppra 500 MG/5 ML*** 500 MG in D5w 100ML Mini Bag 100 ML 100 ML IV ONE (12:59)
[2023-07-10 13:03] LABS: Absolute Neutrophil Ct (ANC) 9.84 x10^3/uL (1.4-6.9); BASOPHIL % 0.4 % (0.0-0.4); Basophil (Absolute #) 0.05 x10^3/uL (0-0.4); Eosinophil % 0.1 % (0.00-5.0); Eosinophil (Absolute #) 0.01 x10^3/uL (0-0.5); Hematocrit 43.6 % (42-50); Hemoglobin 14.4 g/dL (12.5-18.0); IMMATURE GRAN # 0.05 x10^3u/L (0.00-0.03); IMMATURE GRAN % 0.4 % (0.00-0.4); Lymphocyte (Absolute #) 2.08 x10^3/uL (1.0-4.6); Lymphocytes % 16.1 % (24.0-44.0); Mean Cell Volume 87.6 fL (78-100); Mean Corpuscular Hemoglobin 28.9 pg (26-32); Mean Platelet Volume 8.8 fL (7.5-11.0); Monocyte (Absolute #) 0.87 x10^3/uL (0.0-1.3); Monocytes % 6.7 % (0.0-12.0); Neutrophil % 76.3 % (36.0-66.0); Platelet Count 359 x10^3/uL (150-450); Red Blood Count 4.98 x10^6/uL (4.1-5.6); Red Cell Distribution Width 13.5 % (11.5-14.0); White Blood Count 12.9 x10^3/uL (4.0-10.5)
[2023-07-10 13:19] LABS: ALBUMIN 5.1 g/dL (3.5-5.0); ANION GAP 23.3 MEQ/L (5-15); BILIRUBIN,TOTAL 0.3 mg/dL (0.2-1.3); Calcium 9.4 mg/dL (8.4-10.2); Creatinine 1 0.99 mg/dL (0.66-1.25); EST GLOMERULAR FILTRATION RATE 103.2 ML/MIN; MAGNESIUM 2.2 mg/dL (1.6-2.3); Potassium 4.2 mmol/L (3.5-5.1); Total Protein 8.7 g/dL (6.3-8.2)
[2023-07-10 13:39] LABS: INFLUENZA A NEGATIVE (NEGATIVE); INFLUENZA B NEGATIVE (NEGATIVE); RESPIRATORY SYNCTIAL VIRUS NEGATIVE (NEGATIVE); SARS-CoV-2 Xpert Express NEGATIVE (NEGATIVE)
--- NOTE | 2023-07-10 13:42 | XRAY ---
Indication: Seizure. Vomiting. Multiple contiguous axial images obtained through the head without contrast. Comparison: March 16May 31, and July 03, 2023. Normal appearing brain parenchyma, ventricles, and bony calvarium. Visualized paranasal sinuses and mastoid air cells are clear. Impression: Continued normal CT head without contrast exam.
[2023-07-10] MEDS ORDERED: Lactated Ringers 1,000 ML IV ONE (14:16)
[2023-07-10] MEDS: Lactated Ringers 1,000 ML IV ONE (14:17)
[2023-07-10] MEDS: Sodium Chloride 0.9% 500 ML 500 ML IV ONE (17:58)
[2023-07-10] MEDS ORDERED: Sodium Chloride 0.9% 500 ML 500 ML IV ONE (17:58)
[2023-07-10 18:03] VITALS: BP 96/56; PULSE 76; RESP 18; O2SAT 94
== END 2023-07-10 18:22 | disposition home or self-care (01) ==
LOC: ED 12:24
DX: G40.909 Epilepsy, unspecified, not intractable, without status epilepticus (principal); Z91.148 Patient's other noncompliance with medication regimen for other reason; R11.2 Nausea with vomiting, unspecified; Z72.0 Tobacco use; Z59.00 Homelessness unspecified
CPT/HCPCS: 0241U; 36000; 36415; 70450; 80053; 82077; 83735; 85025; 93005; 94760; 96360; 96361; 96374; 99285; J1953; J2060; Q0162

== ENCOUNTER 2023-08-13 08:52 | Emergency (ER) | payer OTHER ==
--- NOTE | 2023-08-13 09:41 | ERPHSYRPT ---
- History of Present Illness Time Seen by Provider: 08/13/23 09:00 Source: patient Exam Limitations: no limitations Patient Subjective Stated Complaint: Pt states "I fell on my face and I have not been eating, I have not been sleeping" Triage Nursing Assessment: Pt presented alert and oriented X 3, skin pwd. Pt ambulates with an upright steady gait, able to speak in clear full sentences. PT resting comfortable on the bed. Physician History: 32-year-old male with history of seizure disorder and not taking any medications, substance abuse presented in the ER after he got up and possibly tripped on another person who was sleeping beside him and fell face forward with laceration right upper lip. Patient denies any loss of consciousness. Remembers the whole sequence of events. Patient denies any neck pain or pain in the nose, does have some bruises on the face. No headache. Denies any focal numbness tingling or weakness. Patient does has history of seizures, no tongue bite. No loss of bowel or bladder control reported. Reports he has not been sleeping well for the last few days and has been really tired. Denies any chest pain palpitations or shortness of breath. No abdominal pain nausea or vomiting reported. Patient does not want to have any kind of workup done blood work/imaging/IV fluids/medications except to repair the lip. Allergies/Adverse Reactions: No Known Drug Allergies Allergy (Verified 07/10/23 13:29) Hx Tetanus, Diphtheria Vaccination/Date Given: Yes Hx Influenza Vaccination/Date Given: No Hx Pneumococcal Vaccination/Date Given: No Immunizations Up to Date: No Travel Risk - International Travel Have you traveled outside of the country in past 3 weeks: No - Emerging Infectious Disease Are you exhibiting symptoms associated with any current EIDs: No Symptoms: Vomitting - Review of Systems Constitutional: No Symptoms Eyes: No Symptoms Ears, Nose, & Throat: Mouth Pain, Mouth Swelling Respiratory: No Symptoms Cardiac: No Symptoms Abdominal/Gastrointestinal: No Symptoms Genitourinary Symptoms: No Symptoms Musculoskeletal: No Symptoms Skin: Skin Lesions Neurological: No Symptoms Psychological: Anxiety Endocrine: No Symptoms Hematologic/Lymphatic: No Symptoms - Past Medical History Pertinent Past Medical History: Yes Neurological History: Seizures Psycho-Social History: Attention Deficit Disorder Other Medical History: States his only medical history is being attacked/biten by a pack of dogs when he was a child and ADHD - Past Surgical History Past Surgical History: No - Social History Smoking Status: Current some day smoker Exposure to second hand smoke: Yes Drug Use: marijuana Patient Lives Alone: Yes (homeless) - Social Determinants of Health Will the patient participate in the screening: Yes Do you worry about a steady place to live?: Yes Do you have any problems with any of the following?: Other In the past 12 months,have you had to go without utilities?: Yes Transportation Issues: Yes Has anyone in your support network made you feel unsafe?: No Have you or anyone in your house had to go without enough: Yes - Nursing Vital Signs Nursing Vital Signs: Initial Vital Signs Temperature 98.2 F 08/13/23 09:00 Pulse Rate 81 08/13/23 09:00 Respiratory Rate 20 08/13/23 09:00 Blood Pressure 124/87 08/13/23 09:00 O2 Sat by Pulse Oximetry 100 08/13/23 09:00 Pain Scale Pain Intensity 0 - Physical Exam General Appearance: no apparent distress, alert Eye Exam: PERRL/EOMI, eyes nml inspection Ears, Nose, Throat Exam: moist mucous membranes, other (3 cm laceration right upper lip at the right angle of mild through and through. No dental tenderness. No loose teeth) Respiratory Exam: normal breath sounds, lungs clear Cardiovascular Exam: regular rate/rhythm, normal heart sounds Gastrointestinal/Abdomen Exam: soft, normal bowel sounds, No tenderness Extremity Exam: normal inspection, normal range of motion Neurologic Exam: alert, 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, cooperative Skin Exam: normal color SpO2 Interpretation: normal SpO2: 100 O2 Delivery: Room Air Procedures - Laceration/Wound Repair Right Lip Time of Procedure: 10:25 Wound Location: Right Wound Length (cm): 3 Wound's Depth, Shape: into muscle, irregular Wound Explored: clean Irrigated: Yes Hibiclens Prep: Yes Anesthesia: 1% Lidocaine Volume Anesthetic (ccs): 6 Suture Size/Type: 6-0 (prolene 3 sutures, 5-0 chromic 7 sutures) Ordered Tests: Medication Summary Discontinued Medications Generic Name Dose Route Start Last Admin Trade Name Freq PRN Reason Stop Dose Admin Amoxicillin/Clavulanate Potassium 875 mg 08/13/23 10:26 08/13/23 10:29 Amox Tr/Potassium Clavulanate 875 Mg Tablet PO 08/13/23 10:27 875 mg STAT ONE Administration Amoxicillin/Clavulanate Potassium Confirm 08/13/23 10:28 Amox Tr/Potassium Clavulanate 875 Mg Tablet Administered 08/13/23 10:29 Dose 875 mg .ROUTE .STK-MED ONE Diphtheria/Tetanus/Acell Pertussis 0.5 ml 08/13/23 10:26 08/13/23 10:29 Tdap --Diph,Pertuss(Acell),Tet Vac/Pf 0.5 Ml Vial IM 08/13/23 10:27 0.5 ml .ONCE ONE Administration Diphtheria/Tetanus/Acell Pertussis Confirm 08/13/23 10:28 Tdap --Diph,Pertuss(Acell),Tet Vac/Pf 0.5 Ml Vial Administered 08/13/23 10:29 Dose 0.5 ml IM .STK-MED ONE - Progress Progress: improved Progress Note: 08/13/23 10:46 32-year-old male with history of seizure disorder is evaluated in the ER after he fell face forward with laceration right upper lip. No dental trauma. No active spurting,, normal bruising. Has some tenderness in the maxillary area. Offered CT imaging of head/face/neck and other workup for questionable seizure but patient declined. He does understand the risk of not doing workup which wo uld not only delay the diagnosis but also having life-threatening disease process which could be missed and wants to have only lip repair done. Patient is not in any distress. Nonfocal neuroexam. Laceration is repaired. Tetanus is updated and started on Augmentin to go home. Also patient has not been taking Keppra and sent a prescription to the pharmacy. Patient also refused to have blood work or fluids as he thinks it is secondary to his sleep deprived. Discussed signs symptoms of worsening needing return to ER which he seems understanding. Stable for discharge. Counseled pt/family regarding: diagnosis, need for follow-up Medical Desision Making - Diagnostic Testing Diagnostic test were ordered, analyzed, and reviewed by me: No Radiological Interpretation: Reviewed by me - Risk of complications The pt has a mod risk of morbidity or mortality based on: Need for prescription drug management, Need for minor surgical intervention in patient with know risk factors - Departure Departure Disposition: Home Clinical Impression: Seizure, Lip laceration, Fall, Contusion of face Condition: Stable Critical Care Time: No Referrals: PJ HER MD [Primary Care Provider] - Follow up with PCP 1 day Instructions: Seizures, Adult (DC) Additional Instructions: intermittent ice application, tylenol/ibuprofen as needed. follow up with PCP for re evaluation. take seizure meds as directed. return to ER for any worsening of swelling lip, discharge, headache, numbness/weakness etc. Prescriptions: Amox Tr/Potass Clav. 875 mg [Augmentin 875-125 Tablet] 875 mg PO BID #14 tablet Levetiracetam [Keppra] 500 mg PO BID 30 Days #60 tablet
[2023-08-13] MEDS ORDERED: Augmentin 875-125 Tablet ONE (10:28)
[2023-08-13] MEDS ORDERED: Adacel Vial IM ONE (10:28)
[2023-08-13] MEDS: Adacel Vial IM ONE (10:29)
[2023-08-13] MEDS: Augmentin 875-125 Tablet PO ONE (10:29)
[2023-08-13 11:08] VITALS: BP 118/80; PULSE 78; RESP 20; TEMP 97.8
[2023-08-13 11:24] VITALS: O2SAT 100
== END 2023-08-13 11:27 | disposition home or self-care (01) ==
LOC: ED 08:52
DX: S01.511A Laceration without foreign body of lip, initial encounter (principal); S00.83XA Contusion of other part of head, initial encounter; W01.0XXA Fall on same level from slipping, tripping and stumbling without subsequent striking against object, initial encounter; G40.909 Epilepsy, unspecified, not intractable, without status epilepticus; Z72.0 Tobacco use; Z59.00 Homelessness unspecified; Z59.82 Transportation insecurity; Z59.12 Inadequate housing utilities; Z59.41 Food insecurity; Z23 Encounter for immunization
CPT/HCPCS: 12013; 90471; 90715; 99283; A9270-GY

== ENCOUNTER 2023-08-30 10:10 | Emergency (ER) | payer OTHER ==
[2023-08-30 10:14] VITALS: TEMP 97.9
--- NOTE | 2023-08-30 10:15 | ERPHSYRPT ---
- History of Present Illness Time Seen by Provider: 08/30/23 10:15 Source: patient, EMS, old records Exam Limitations: no limitations Physician History: This is a 32-year-old white male patient who was brought to the emergency department by paramedics. This is the eighth emergency department visit since March 2023 for seizure episode. Patient is noncompliant. Patient supposed to be on Keppra but has not filled his prescription. He has not seen a neurologist. His most recent visit was on 08/13/2023. Patient has a history of substance abuse in the past. Additional history was obtained from the paramedics. The patient is currently awake alert and oriented. He did not soil his pants with urine or stool. Patient is moving all his extremities. Patient did hit his head and did lose consciousness. He has a cervical collar in place. Patient states that he was at a friend's house when this occurred. He does not remember the specifics of the event. Apparently, the patient did not fill the prescription of Keppra that was provided him from the emergency department at his evaluation. Timing/Duration: today Severity: moderate Character of Deficits: none Deficits: no difficulties Baseline/Normal Cognition: alert 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 Current Cognition: alert 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 Baseline Gait: walks w/o assistance Associated Symptoms: loss of consciousness, seizures, No confusion, No weakness, No slurred speech Allergies/Adverse Reactions: No Known Drug Allergies Allergy (Verified 08/30/23 10:11) Hx Tetanus, Diphtheria Vaccination/Date Given: Yes Hx Influenza Vaccination/Date Given: No Hx Pneumococcal Vaccination/Date Given: No Travel Risk - International Travel Have you traveled outside of the country in past 3 weeks: No - Emerging Infectious Disease Are you exhibiting symptoms associated with any current EIDs: No Symptoms: Vomitting - Review of Systems Constitutional: No Symptoms Eyes: No Symptoms Ears, Nose, & Throat: No Symptoms Respiratory: No Symptoms Cardiac: No Symptoms Abdominal/Gastrointestinal: No Symptoms Genitourinary Symptoms: No Symptoms Musculoskeletal: No Symptoms Skin: No Symptoms Neurological: Seizure Psychological: No Symptoms Endocrine: No Symptoms Hematologic/Lymphatic: No Symptoms Immunological/Allergic: No Symptoms All Other Systems: Reviewed and Negative - Past Medical History Pertinent Past Medical History: Yes Neurological History: Seizures ENT History: No Pertinent History Cardiac History: No Pertinent History Respiratory History: No Pertinent History Endocrine Medical History: No Pertinent History Musculoskeletal History: No Pertinent History GI Medical History: No Pertinent History History: No Pertinent History Psycho-Social History: Attention Deficit Disorder Male Reproductive Disorders: No Pertinent History Other Medical History: States his only medical history is being attacked/biten by a pack of dogs when he was a child and ADHD - Past Surgical History Past Surgical History: No - Social History Smoking Status: Current some day smoker Exposure to second hand smoke: Yes Drug Use: marijuana Patient Lives Alone: Yes (homeless) - Social Determinants of Health Will the patient participate in the screening: Yes Do you worry about a steady place to live?: Yes In the past 12 months,have you had to go without utilities?: Yes Transportation Issues: Yes Has anyone in your support network made you feel unsafe?: No Have you or anyone in your house had to go without enough: Yes - Nursing Vital Signs Nursing Vital Signs: Initial Vital Signs Temperature 97.9 F 08/30/23 10:10 Pulse Rate 84 08/30/23 10:10 Respiratory Rate 18 08/30/23 10:10 Blood Pressure 112/79 08/30/23 10:10 O2 Sat by Pulse Oximetry 92 L 08/30/23 10:10 Pain Scale Pain Intensity 3 - Stacy Coma Scale Best Eye Response (Stacy): (4) open spontaneously Best Verbal Response (Duke): (5) oriented Best Motor Response (Duke): (6) obeys commands Duke Total: 15 - Physical Exam General Appearance: no apparent distress, alert, thin Eye Exam: bilateral eye: normal inspection, PERRL, EOMI Ears, Nose, Throat Exam: normal ENT inspection, moist mucous membranes Neck Exam: normal inspection, non-tender, other (Patient arrives with cervical collar in place) Respiratory: normal breath sounds, lungs clear, airway intact, No chest tenderness, No respiratory distress Cardiovascular: regular rate/rhythm, normal heart sounds, normal peripheral pulses Gastrointestinal: soft, normal bowel sounds, No tenderness Rectal Exam: not done Back Exam: normal inspection, normal range of motion, No CVA tenderness, No vertebral tenderness Extremity Exam: normal inspection, normal range of motion, pelvis stable 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, 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, 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 Exam: normal hearing, normal speech, PERRL, tongue midline Motor/Sensory: no motor deficit, no sensory deficit, no pronator drift Skin Exam: normal color, warm, dry SpO2 Interpretation: borderline oxygenation SpO2: 92 O2 Delivery: Room Air - Course Nursing assessment & vital signs reviewed: Yes EKG Interpreted by Me: RATE (73), Sinus Rhythm, NORMAL AXIS, NORMAL INTERVALS, NORMAL QRS, Other (No acute ischemic changes on today's twelve-lead EKG.) Ordered Tests: Active Orders 24 hr Category Date Time Status Home Comfort Advisor STAT Care 08/30/23 10:28 Active Clean Catch Urine Specimen STAT Care 08/30/23 10:26 Active EKG-ER Only STAT Care 08/30/23 10:26 Active IV Insertion STAT Care 08/30/23 10:26 Active Pulse Oximetry (ED) STAT Care 08/30/23 10:26 Active CERVICAL SPINE WO CONTRAST [CT] Stat Exams 08/30/23 10:29 Completed HEAD WITHOUT CONTRAST [CT] Stat Exams 08/30/23 10:29 Completed CBC W DIFF Stat Lab 08/30/23 10:25 Completed CMP Stat Lab 08/30/23 10:25 Completed UA W/RFX UR CULTURE Stat Lab 08/30/23 12:41 Completed Urine Triage Profile Stat Lab 08/30/23 12:41 Results Medication Summary Discontinued Medications Generic Name Dose Route Start Last Admin Trade Name Freq PRN Reason Stop Dose Admin Sodium Chloride 1,000 mls @ 999 mls/hr 08/30/23 10:26 08/30/23 12:23 Sodium Chloride 0.9% 1000 Ml IV 08/30/23 11:26 Infused .Q1H1M STA Infusion Levetiracetam 500 mg/ Dextrose 105 mls @ 400 mls/hr 08/30/23 10:26 08/30/23 10:47 IV 08/30/23 10:41 400 mls/hr STAT ONE Administration Sodium Chloride Confirm 08/30/23 10:35 Sodium Chloride 0.9% 1000 Ml Administered 08/30/23 10:36 Dose 1,000 mls @ ud .ROUTE .STK-MED ONE Ondansetron HCl 4 mg 08/30/23 10:26 08/30/23 10:43 Ondansetron Hcl 4 Mg/2 Ml Vial IV 08/30/23 10:27 4 mg STAT ONE Administration Ondansetron HCl Confirm 08/30/23 10:35 Ondansetron Hcl 4 Mg/2 Ml Vial Administered 08/30/23 10:36 Dose 4 mg .ROUTE .STK-MED ONE Lab/Rad Data: Laboratory Result Diagrams 08/30/23 10:25 08/30/23 10:25 Laboratory Results 08/30/23 08/30/23 08/30/23 Range/Units 12:41 12:41 10:25 WBC (4.23-9.07) x10^3/uL RBC (4.63-6.08) x10^6/uL Hgb (13.7-17.5) g/dL Hct (40.1-51.0) % MCV (79.0-92.2) fL MCH (25.7-32.2) pg MCHC (32.3-36.5) g/dL RDW (11.6-14.4) % Plt Count (163-337) x10^3/uL MPV (9.4-12.4) fL Gran % (34.0-67.9) % Immature Gran % (Auto) (0.001-0.429) % Nucleat RBC Rel Count (0.00-0.2) % Eos # (Auto) (0.04-0.54) x10^3/uL Immature Gran # (Auto) (0.001-0.031) x10^3u/L Absolute Lymphs (auto) (1.32-3.57) x10^3/uL Absolute Monos (auto) (0.30-0.82) x10^3/uL Absolute Nucleated RBC (0.00-0.012) x10^3u/L Lymphocytes % (21.8-53.1) % Monocytes % (5.3-12.2) % Eosinophils % (0.8-7.0) % Basophils % (0.2-1.2) % Absolute Granulocytes (1.78-5.38) x10^3/uL Basophils # (0.01-0.08) x10^3/uL Sodium 138 (135-145) mmol/L Potassium 4.3 (3.5-5.1) mmol/L Chloride 104 (98-107) mmol/L Carbon Dioxide 21 L (22-30) mmol/L Anion Gap 17.7 H (5-15) MEQ/L BUN 15 (9-20) mg/dL Creatinine 0.93 (0.66-1.25) mg/dL Estimated GFR 111.2 ML/MIN Glucose 87 (74-106) mg/dL Calcium 10.1 (8.4-10.2) mg/dL Total Bilirubin 0.70 (0.2-1.3) mg/dL AST 37 (17-59) U/L ALT 27 (0-50) U/L Alkaline Phosphatase 70 (38-126) U/L Serum Total Protein 8.9 H (6.3-8.2) g/dL Albumin 4.9 (3.5-5.0) g/dL Urine Color Yellow (Yellow) Urine Appearance Clear (Clear) Urine pH 6.0 (4.6-8.0) Ur Specific [place] 1.015 (1.005-1.030) Urine Protein Trace A (Negative) Urine Glucose (UA) Negative (Negative) mg/dL Urine Ketones Trace A (Negative) Urine Blood Negative (Negative) Urine Nitrite Negative (Negative) Urine Bilirubin Negative (Negative) Urine Urobilinogen 0.2 (0.2) mg/dL Ur Leukocyte Esterase Negative (Negative) U Hyaline Cast (Auto) 3-5 A (0-2) /LPF Urine Microscopic RBC 0-2 (0-5) /HPF Urine Microscopic WBC 0-2 (0-5) /HPF Ur Epithelial Cells None Seen (None Seen) /HPF Urine Bacteria None Seen (None Seen) /HPF Urine Culture Reflexed NO (NO) Urine Opiates Level NEGATIVE (NEGATIVE) Ur Methadone NEGATIVE (NEGATIVE) Urine Barbiturates NEGATIVE (NEGATIVE) Ur Phencyclidine (PCP) NEGATIVE (NEGATIVE) Urine Amphetamine Pending U Benzodiazepine Level NEGATIVE (NEGATIVE) Urine Cocaine NEGATIVE (NEGATIVE) Urine Marijuana (THC) POSITIVE A (NEGATIVE) 08/30/23 Range/Units 10:25 WBC 5.6 (4.23-9.07) x10^3/uL RBC 5.16 (4.63-6.08) x10^6/uL Hgb 15.0 (13.7-17.5) g/dL Hct 44.8 (40.1-51.0) % MCV 86.8 (79.0-92.2) fL MCH 29.1 (25.7-32.2) pg MCHC 33.5 (32.3-36.5) g/dL RDW 13.2 (11.6-14.4) % Plt Count 279 (163-337) x10^3/uL MPV 8.7 L (9.4-12.4) fL Gran % 70.0 H (34.0-67.9) % Immature Gran % (Auto) 0.4 (0.001-0.429) % Nucleat RBC Rel Count 0.0 (0.00-0.2) % Eos # (Auto) 0.01 L (0.04-0.54) x10^3/uL Immature Gran # (Auto) 0.02 (0.001-0.031) x10^3u/L Absolute Lymphs (auto) 1.13 L (1.32-3.57) x10^3/uL Absolute Monos (auto) 0.47 (0.30-0.82) x10^3/uL Absolute Nucleated RBC 0.00 (0.00-0.012) x10^3u/L Lymphocytes % 20.4 L (21.8-53.1) % Monocytes % 8.5 (5.3-12.2) % Eosinophils % 0.2 L (0.8-7.0) % Basophils % 0.5 (0.2-1.2) % Absolute Granulocytes 3.89 (1.78-5.38) x10^3/uL Basophils # 0.03 (0.01-0.08) x10^3/uL Sodium (135-145) mmol/L Potassium (3.5-5.1) mmol/L Chloride (98-107) mmol/L Carbon Dioxide (22-30) mmol/L Anion Gap (5-15) MEQ/L BUN (9-20) mg/dL Creatinine (0.66-1.25) mg/dL Estimated GFR ML/MIN Glucose (74-106) mg/dL Calcium (8.4-10.2) mg/dL Total Bilirubin (0.2-1.3) mg/dL AST (17-59) U/L ALT (0-50) U/L Alkaline Phosphatase (38-126) U/L Serum Total Protein (6.3-8.2) g/dL Albumin (3.5-5.0) g/dL Urine Color (Yellow) Urine Appearance (Clear) Urine pH (4.6-8.0) Ur Specific [place] (1.005-1.030) Urine Protein (Negative) Urine Glucose (UA) (Negative) mg/dL Urine Ketones (Negative) Urine Blood (Negative) Urine Nitrite (Negative) Urine Bilirubin (Negative) Urine Urobilinogen (0.2) mg/dL Ur Leukocyte Esterase (Negative) U Hyaline Cast (Auto) (0-2) /LPF Urine Microscopic RBC (0-5) /HPF Urine Microscopic WBC (0-5) /HPF Ur Epithelial Cells (None Seen) /HPF Urine Bacteria (None Seen) /HPF Urine Culture Reflexed (NO) Urine Opiates Level (NEGATIVE) Ur Methadone (NEGATIVE) Urine Barbiturates (NEGATIVE) Ur Phencyclidine (PCP) (NEGATIVE) Urine Amphetamine U Benzodiazepine Level (NEGATIVE) Urine Cocaine (NEGATIVE) Urine Marijuana (THC) (NEGATIVE) - Progress Progress: improved, re-examined Progress Note: 08/30/23 10:34 My medical decision making and the assignment of moderate complexity to this patient's medical issue today is based on review of the patient's past medical history, review of the patient's medication list, review of the patient drug a llergy list, history present illness and physical findings on examination. The workup includes placement of intravenous line, infusion of normal saline solution, urinalysis, urine drug screen, CT scan of the head and cervical spine, twelve-lead EKG, CBC, CMP, and infusion of Keppra 500 mg intravenously. Differential diagnosis includes but is not limited to seizure breakthrough and noncompliant patient, urinary tract infection, electrolyte abnormalities, illicit drug induced seizure 08/30/23 11:[address] scan of the head without contrast was interpreted by the radiologist and I reviewed the impression. The impression states unremarkable brain CT scan. No midline shift or deformity present. No intra or extracranial hematoma. 08/30/23 12:[address] scan of the cervical spine without contrast was interpreted by the radiologist and I reviewed the impression. The impression states no acute fracture or dislocation present. 08/30/23 13:40 I interpreted the patient's laboratory data results. Patient's urine tested positive for marijuana. Based on the patient's laboratory data results, there is no evidence of any acute, emergent medical issue. 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 Take your antiseizure medication as prescribed. Call your prescribing provider tomorrow, 08/31/2023 to make arrangements for follow-up appointment and to be seen in the next 3 to 5 days. Prescriptions: Levetiracetam [Keppra] 500 mg PO BID #20 tablet
[2023-08-30 10:27] VITALS: RESP 23
[2023-08-30] MEDS ORDERED: Sodium Chloride 0.9% 1000 ML 1,000 ML ONE (10:35)
[2023-08-30] MEDS ORDERED: Zofran 4 MG/2 ML VIAL ONE (10:35)
[2023-08-30] MEDS: Sodium Chloride 0.9% 1000 ML 1,000 ML IV STA (10:43)
[2023-08-30] MEDS: Zofran 4 MG/2 ML VIAL IV ONE (10:43)
[2023-08-30] MEDS: Keppra 500 MG/5 ML*** 500 MG in D5w 100ML Mini Bag 100 ML 100 ML IV ONE (10:47)
[2023-08-30 10:49] LABS: Absolute Neutrophil Ct (ANC) 3.89 x10^3/uL (1.78-5.38); BASOPHIL % 0.5 % (0.2-1.2); Basophil (Absolute #) 0.03 x10^3/uL (0.01-0.08); Eosinophil % 0.2 % (0.8-7.0); Eosinophil (Absolute #) 0.01 x10^3/uL (0.04-0.54); Hematocrit 44.8 % (40.1-51.0); IMMATURE GRAN # 0.02 x10^3u/L (0.001-0.031); IMMATURE GRAN % 0.4 % (0.001-0.429); Lymphocyte (Absolute #) 1.13 x10^3/uL (1.32-3.57); Lymphocytes % 20.4 % (21.8-53.1); Mean Cell Volume 86.8 fL (79.0-92.2); Mean Corpuscular Hemoglobin 29.1 pg (25.7-32.2); Mean Corpuscular Hgb Concent. 33.5 g/dL (32.3-36.5); Mean Platelet Volume 8.7 fL (9.4-12.4); Monocyte (Absolute #) 0.47 x10^3/uL (0.30-0.82); Monocytes % 8.5 % (5.3-12.2); Platelet Count 279 x10^3/uL (163-337); Red Blood Count 5.16 x10^6/uL (4.63-6.08); Red Cell Distribution Width 13.2 % (11.6-14.4); White Blood Count 5.6 x10^3/uL (4.23-9.07)
[2023-08-30 11:02] LABS: ALBUMIN 4.9 g/dL (3.5-5.0); ANION GAP 17.7 MEQ/L (5-15); BILIRUBIN,TOTAL 0.7 mg/dL (0.2-1.3); Calcium 10.1 mg/dL (8.4-10.2); Creatinine 1 0.93 mg/dL (0.66-1.25); EST GLOMERULAR FILTRATION RATE 111.2 ML/MIN; Potassium 4.3 mmol/L (3.5-5.1); Total Protein 8.9 g/dL (6.3-8.2)
[2023-08-30 11:34] VITALS: O2SAT 92
--- NOTE | 2023-08-30 11:35 | XRAY ---
CLINICAL HISTORY: LOC; seizure COMPARISON: None. TECHNIQUE: Axial non-enhanced CT scan of the brain was performed from the skull base to the high parietal region. Coronal and sagittal reconstruction are also obtained. One of the following dose reduction techniques were utilized for this exam: Automated exposure control, adjustment of the mA and/or kV according to patient size, use of iterative reconstruction FINDINGS: The visualized brain parenchyma shows normal appearance. No focal parenchymal abnormalities are demonstrated. Bowen-white matter differentiation is maintained. No midline shifts or deformity. No intracerebral or extra axial hematoma. Normal size and configuration of the cerebral ventricles. Normal CT appearance of the posterior fossa structures namely the cerebellar hemispheres, brainstem and cerebellar peduncles. The IACs are unremarkable. The cerebello-pontine angles are clear. The pituitary gland, the pineal gland, the optic chiasm is unremarkable. The osseous structures in the skull base are unremarkable. No definite calvarium fractures. Scanned paranasal sinuses are clear. Right extra calvarial right temporal region, subcutaneous dense oval shape lesion noted, of soft tissue density, no intra cranial extension, likely skin lesion like a sebaceous cyst. IMPRESSION: 1. Unremarkable brain. 2. The right subcutaneous extra-cranial small lesion could be a proliferating trichilemmal cyst. Electronically Signed by: Mariia Leach MD. (08/30/2023 11:30:29 EDT)
--- NOTE | 2023-08-30 12:09 | XRAY ---
CLINICAL HISTORY: LOC; seizure COMPARISON: None TECHNIQUE: Thin axial CT of the cervical spine was performed with sagittal and coronal reconstructions without contrast. One of the following dose reduction techniques were utilized for this exam: Automated exposure control, adjustment of the mA and/or kV according to patient size, use of iterative reconstruction FINDINGS: Left-sided long cervical bony rib. Alignment and osseous structures: Straightening of cervical lordosis, mostly due to muscle spasm. The vertebral bodies are normal in height. No lytic or sclerotic bone lesion. The craniovertebral measures are unremarkable. Intervertebral disc spaces: Normal disc height is noted. Level by Level analysis: C2-C3: No central canal or neuroforaminal stenosis. C3-C4: No central canal or neuroforaminal stenosis. C4-C5: No central canal or neuroforaminal stenosis. C5-C6: No central canal or neuroforaminal stenosis. C6-C7: No central canal or neuroforaminal stenosis. Bilateral cervical rib noted. IMPRESSION: 1. Left-sided long cervical bony rib. 2. Straightening of cervical lordosis, possibly due to muscular spasm. 3. No fracture or dislocation. Electronically Signed by: Mariia Leach MD. (08/30/2023 12:04:11 EDT)
[2023-08-30 13:12] LABS: Appearance Clear (Clear); Bacteria None Seen /HPF (None Seen); Bilirubin Negative (Negative); Blood Negative (Negative); Epithelial Cells None Seen /HPF (None Seen); Glucose, Urine Negative (Negative); Ketones Trace (Negative); Leukocyte Esterase Negative (Negative); Nitrite Negative (Negative); Protein,Urine Dip Trace (Negative); RBC 0-2 /HPF (0-5); Specific Gravity 1.015 (1.005-1.030); Urobilinogen 0.2 mg/dL (0.2); WBC 0-2 /HPF (0-5)
[2023-08-30 13:13] VITALS: BP 118/74; PULSE 84
[2023-08-30 13:18] LABS: ADD URINE CULTURE? NO (NO)
[2023-08-30 13:21] LABS: Barbiturate,Urine NEGATIVE (NEGATIVE); Benzodiazepine,Urine NEGATIVE (NEGATIVE); Cocaine,Urine NEGATIVE (NEGATIVE); Methadone,Urine NEGATIVE (NEGATIVE); Opiate,Urine NEGATIVE (NEGATIVE); PCP,Urine NEGATIVE (NEGATIVE); THC,Urine POSITIVE (NEGATIVE)
[2023-08-30 13:42] LABS: Amphetamine,Urine POSITIVE (NEGATIVE)
== END 2023-08-30 14:11 | disposition home or self-care (01) ==
LOC: ED 10:10
DX: G40.909 Epilepsy, unspecified, not intractable, without status epilepticus (principal); Z91.148 Patient's other noncompliance with medication regimen for other reason; Z72.0 Tobacco use; Z59.00 Homelessness unspecified; Z59.82 Transportation insecurity; Z59.41 Food insecurity
CPT/HCPCS: 36000; 36415; 70450; 72125; 80053; 80307; 81001; 84146; 85025; 93005; 93041; 94760; 96360; 96374; 99284; J1953; J2405

== ENCOUNTER 2023-11-25 21:13 | Emergency (ER) | payer OTHER ==
[2023-11-25 21:33] VITALS: TEMP 99.5
[2023-11-25 21:38] LABS: Absolute Neutrophil Ct (ANC) 3.83 x10^3/uL (1.78-5.38); BASOPHIL % 0.5 % (0.2-1.2); Basophil (Absolute #) 0.03 x10^3/uL (0.01-0.08); Eosinophil % 0.5 % (0.8-7.0); Eosinophil (Absolute #) 0.03 x10^3/uL (0.04-0.54); Hematocrit 41.9 % (40.1-51.0); Hemoglobin 13.4 g/dL (13.7-17.5); IMMATURE GRAN # 0.02 x10^3u/L (0.001-0.031); IMMATURE GRAN % 0.3 % (0.001-0.429); Lymphocyte (Absolute #) 1.65 x10^3/uL (1.32-3.57); Lymphocytes % 27.1 % (21.8-53.1); Mean Cell Volume 91.1 fL (79.0-92.2); Mean Corpuscular Hemoglobin 29.1 pg (25.7-32.2); Mean Platelet Volume 8.4 fL (9.4-12.4); Monocyte (Absolute #) 0.52 x10^3/uL (0.30-0.82); Monocytes % 8.6 % (5.3-12.2); Platelet Count 244 x10^3/uL (163-337); Red Cell Distribution Width 13.3 % (11.6-14.4); White Blood Count 6.1 x10^3/uL (4.23-9.07)
[2023-11-25 22:15] LABS: ALBUMIN 4.5 g/dL (3.5-5.0); ANION GAP 22.1 MEQ/L (5-15); BILIRUBIN,TOTAL 0.4 mg/dL (0.2-1.3); Calcium 9.4 mg/dL (8.4-10.2); Creatinine 1 1.06 mg/dL (0.66-1.25); EST GLOMERULAR FILTRATION RATE 94.4 ML/MIN; Potassium 4.4 mmol/L (3.5-5.1); Total Protein 7.3 g/dL (6.3-8.2)
--- NOTE | 2023-11-25 22:17 | ERPHSYRPT ---
- History of Present Illness Time Seen by Provider: 11/25/23 21:20 Source: patient Exam Limitations: no limitations Patient Subjective Stated Complaint: EMS states that pt was found down at work with a head injury Triage Nursing Assessment: pt was brought into the er via ambulance; pt is axo; pt is aggressive and combative; c/o head injury; pt states 7/10 pain to head; 2 lacerations present to head; laceration to left side of head measures 2 cm x 0.2 cm; laceration to left forehead 2 cm; large hematoma present to rt side of head; multiple hematomas present to left side of the head; pupils 3 mm and PERRL; strong estrellita associate and pushes; vitals wnl; no respiratory distress present Physician History: Patient is a 33-year-old male presents to our ED via EMS from his place of employment for evaluation of head injury. Patient has a history of epilepsy. Patient is currently not taking any antiepileptics. Per reports patient had a seizure at work. Patient fell and hit his head on a corrugated steel floor. Patient presents with 2, 2 cm laceration to the left forehead. There are several areas of scalp hematomas. Patient was postictal upon arrival somewhat confused somewhat combative but his mentation is rapidly clearing. No neck pain. Cervical spine cleared clinically. Remaining physical exam was nonrema rkable. Patient denies past medical history. He voices no other complaints or concerns at this time. Portions of this note were created with voice recognition technology. There may be grammatical, spelling, punctuation or sound alike errors Timing/Duration: today Severity: moderate Modifying Factors: Improves With: nothing Associated Symptoms: denies symptoms Allergies/Adverse Reactions: No Known Drug Allergies Allergy (Verified 11/25/23 21:14) Hx Tetanus, Diphtheria Vaccination/Date Given: Yes Hx Influenza Vaccination/Date Given: No Hx Pneumococcal Vaccination/Date Given: No Travel Risk - International Travel Have you traveled outside of the country in past 3 weeks: No - Emerging Infectious Disease Are you exhibiting symptoms associated with any current EIDs: No Symptoms: Vomitting - Review of Systems Constitutional: No Symptoms, No Fever, No Chills Eyes: No Symptoms Ears, Nose, & Throat: No Symptoms Respiratory: No Symptoms, No Cough, No Dyspnea Cardiac: No Symptoms, No Chest Pain, No Edema, No Syncope Abdominal/Gastrointestinal: No Symptoms, No Abdominal Pain, No Nausea, No Vomiting, No Diarrhea Genitourinary Symptoms: No Symptoms, No Dysuria Musculoskeletal: No Symptoms, No Back Pain, No Neck Pain Skin: No Symptoms, No Rash Neurological: No Symptoms, No Dizziness, No Focal Weakness, No Sensory Changes Psychological: No Symptoms Endocrine: No Symptoms Hematologic/Lymphatic: No Symptoms Immunological/Allergic: No Symptoms All Other Systems: Reviewed and Negative - Past Medical History Pertinent Past Medical History: Yes Neurological History: Seizures ENT History: No Pertinent History Cardiac History: No Pertinent History Respiratory History: No Pertinent History Endocrine Medical History: No Pertinent History Musculoskeletal History: No Pertinent History GI Medical History: No Pertinent History History: No Pertinent History Psycho-Social History: Attention Deficit Disorder Male Reproductive Disorders: No Pertinent History Other Medical History: States his only medical history is being attacked/biten by a pack of dogs when he was a child and ADHD - Past Surgical History Past Surgical History: No - Social History Smoking Status: Current some day smoker Exposure to second hand smoke: Yes Drug Use: marijuana Patient Lives Alone: Yes (homeless) - Social Determinants of Health Will the patient participate in the screening: Unable to obtain Do you worry about a steady place to live?: Yes Do you have any problems with any of the following?: No known problems In the past 12 months,have you had to go without utilities?: No Transportation Issues: No Has anyone in your support network made you feel unsafe?: No Have you or anyone in your house had to go without enough: No - Nursing Vital Signs Nursing Vital Signs: Initial Vital Signs Temperature 99.5 F 11/25/23 21:18 Pulse Rate 91 H 11/25/23 21:18 Respiratory Rate 16 11/25/23 21:18 Blood Pressure 102/66 11/25/23 21:18 O2 Sat by Pulse Oximetry 99 11/25/23 21:18 Pain Scale Pain Intensity 0 - Physical Exam General Appearance: no apparent distress, alert Eye Exam: PERRL/EOMI, eyes nml inspection Ears, Nose, Throat Exam: normal ENT inspection, TMs normal, pharynx normal, moist mucous membranes Neck Exam: normal inspection, non-tender, supple, full range of motion Respiratory Exam: normal breath sounds, lungs clear, airway intact, No resp iratory distress Cardiovascular Exam: regular rate/rhythm, normal heart sounds, normal peripheral pulses Gastrointestinal/Abdomen Exam: soft, normal bowel sounds, No tenderness, No mass Back Exam: normal inspection, normal range of motion, No CVA tenderness, No vertebral tenderness Extremity Exam: normal inspection, normal range of motion, pelvis stable Neurologic Exam: alert, 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, cooperative, normal mood/affect, nml cerebellar function, nml station & gait, sensation nml, No motor deficits Skin Exam: normal color, warm, dry, laceration, other (2, 2 cm lacerations to the left forehead. Bilateral anterior scalp contusions observed.), No rash Lymphatic Exam: No adenopathy SpO2 Interpretation: normal SpO2: 99 O2 Delivery: Room Air Procedures - Laceration/Wound Repair Frontal Time of Procedure: 12:10 Wound Location: Left Wound Length (cm): 4.5 Wound's Depth, Shape: superficial Wound Explored: clean Irrigated: Yes Hibiclens Prep: Yes Anesthesia: 1% Lidocaine Volume Anesthetic (ccs): 5 Wound Debrided: No debridement indicated Wound Repaired With: sutures Suture Size/Type: 5-0, ethilon Number of Sutures: 5 Layer Closure?: No Sterile Dressing Applied?: Yes Splint Applied?: No Progress: No intra or postprocedural complications 11/26/23 01:07 - Course Nursing assessment & vital signs reviewed: Yes EKG Interpreted by Me: RATE (70), Sinus Rhythm, NORMAL AXIS, NORMAL INTERVALS, NORMAL QRS - CT Exams Head CT Interpretation: Tele-radiologist Report (No evidence of acute intracranial abnormality is demonstrated. Scalp hematoma of maximal thickness of 12 mm is seen in the right high parietal region) Ordered Tests: Active Orders 24 hr Category Date Time Status Appeals Representative STAT Care 11/25/23 21:23 Active EKG-ER Only STAT Care 11/25/23 21:23 Active IV Insertion STAT Care 11/25/23 21:23 Active Pulse Oximetry (ED) STAT Care 11/25/23 21:23 Active HEAD WITHOUT CONTRAST [CT] Stat Exams 11/25/23 21:26 Taken CBC W DIFF Stat Lab 11/25/23 21:30 Completed CMP Stat Lab 11/25/23 21:30 Completed Lactic Acid Stat Lab 11/25/23 21:40 Completed Lactic Acid Stat Lab 11/25/23 23:58 Completed MAGNESIUM Stat Lab 11/25/23 21:30 Completed TROPONIN Q4H Lab 11/26/23 05:30 Ordered UA W/RFX UR CULTURE Stat Lab 11/25/23 23:11 Completed Urine Triage Profile Stat Lab 11/25/23 23:11 Completed Medication Summary Discontinued Medications Generic Name Dose Route Start Last Admin Trade Name Farhana PRN Reason Stop Dose Admin Sodium Chloride 1,000 mls @ 200 mls/hr 11/25/23 22:45 11/26/23 01:09 Sodium Chloride 0.9% 1000 Ml IV 12/25/23 22:44 0 mls/hr .Q5H NICOLE Titration Ceftriaxone Sodium 1 gm in 100 mls @ 200 mls/hr 11/26/23 00:20 11/26/23 01:02 Rocephin 1 Gm / 100 Ml Nacl IV 11/26/23 00:49 Infused STAT ONE Infusion Ceftriaxone Sodium Confirm 11/26/23 00:27 Rocephin 1 Gm / 100 Ml Nacl Administered 11/26/23 00:28 Dose 1 gm in 100 mls @ ud IV .STK-MED ONE Sodium Chloride Confirm 11/25/23 22:44 Sodium Chloride 0.9% 1000 Ml Administered 11/25/23 22:45 Dose 1,000 mls @ ud .ROUTE .STK-MED ONE Lidocaine HCl Confirm 11/25/23 23:24 Lidocaine Hcl 1% 20 Ml Mdv 20 Ml Ml Administered 11/25/23 23:25 Dose 5 ml .ROUTE .STK-MED ONE Lidocaine HCl 5 ml 11/25/23 23:26 11/26/23 00:27 Lidocaine Hcl 1% 20 Ml Mdv 20 Ml Ml SUBDERMAL 11/25/23 23:27 5 ml STAT ONE Administration Morphine Sulfate 2 mg 11/25/23 22:36 11/25/23 22:45 Morphine Sulfate 2 Mg/Ml Inj IV 11/25/23 22:37 2 mg STAT ONE Administration Morphine Sulfate Confirm 11/25/23 22:44 Morphine Sulfate 2 Mg/Ml Inj Administered 11/25/23 22:45 Dose 2 mg .ROUTE .STK-MED ONE Lab/Rad Data: Laboratory Result Diagrams 11/25/23 21:30 11/25/23 21:30 Laboratory Results 11/26/23 11/25/23 11/25/23 Range/Units 00:45 23:58 23:11 WBC (4.23-9.07) x10^3/uL RBC (4.63-6.08) x10^6/uL Hgb (13.7-17.5) g/dL Hct (40.1-51.0) % MCV (79.0-92.2) fL MCH (25.7-32.2) pg MCHC (32.3-36.5) g/dL RDW (11.6-14.4) % Plt Count (163-337) x10^3/uL MPV (9.4-12.4) fL Gran % (34.0-67.9) % Immature Gran % (Auto) (0.001-0.429) % Nucleat RBC Rel Count (0.00-0.2) % Eos # (Auto) (0.04-0.54) x10^3/uL Immature Gran # (Auto) (0.001-0.031) x10^3u/L Absolute Lymphs (auto) (1.32-3.57) x10^3/uL Absolute Monos (auto) (0.30-0.82) x10^3/uL Absolute Nucleated RBC (0.00-0.012) x10^3u/L Lymphocytes % (21.8-53.1) % Monocytes % (5.3-12.2) % Eosinophils % (0.8-7.0) % Basophils % (0.2-1.2) % Absolute Granulocytes (1.78-5.38) x10^3/uL Basophils # (0.01-0.08) x10^3/uL Sodium (135-145) mmol/L Potassium (3.5-5.1) mmol/L Chloride (98-107) mmol/L Carbon Dioxide (22-30) mmol/L Anion Gap (5-15) MEQ/L BUN (9-20) mg/dL Creatinine (0.66-1.25) mg/dL Estimated GFR ML/MIN Glucose (74-106) mg/dL Lactic Acid 0.7 (0.4-2.0) Calcium (8.4-10.2) mg/dL Magnesium (1.6-2.3) mg/dL Total Bilirubin (0.2-1.3) mg/dL AST (17-59) U/L ALT (0-50) U/L Alkaline Phosphatase (38-126) U/L Troponin 0.01 (0.00-0.03) ng/mL Serum Total Protein (6.3-8.2) g/dL Albumin (3.5-5.0) g/dL Urine Color (Yellow) Urine Appearance (Clear) Urine pH (4.6-8.0) Ur Specific [place] (1.005-1.030) Urine Protein (Negative) Urine Glucose (UA) (Negative) mg/dL Urine Ketones (Negative) Urine Blood (Negative) Urine Nitrite (Negative) Urine Bilirubin (Negative) Urine Urobilinogen (0.2) mg/dL Ur Leukocyte Esterase (Negative) U Hyaline Cast (Auto) (0-2) /LPF Urine Microscopic RBC (0-5) /HPF Urine Microscopic WBC (0-5) /HPF Ur Epithelial Cells (None Seen) /HPF Urine Bacteria (None Seen) /HPF Urine Culture Reflexed (NO) Urine Opiates Level POSITIVE A (NEGATIVE) Ur Methadone NEGATIVE (NEGATIVE) Urine Barbiturates NEGATIVE (NEGATIVE) Ur Phencyclidine (PCP) NEGATIVE (NEGATIVE) Urine Amphetamine NEGATIVE (NEGATIVE) U Benzodiazepine Level NEGATIVE (NEGATIVE) Urine Cocaine NEGATIVE (NEGATIVE) Urine Marijuana (THC) POSITIVE A (NEGATIVE) 11/25/23 11/25/23 11/25/23 Range/Units 23:11 21:40 21:30 WBC (4.23-9.07) x10^3/uL RBC (4.63-6.08) x10^6/uL Hgb (13.7-17.5) g/dL Hct (40.1-51.0) % MCV (79.0-92.2) fL MCH (25.7-32.2) pg MCHC (32.3-36.5) g/dL RDW (11.6-14.4) % Plt Count (163-337) x10^3/uL MPV (9.4-12.4) fL Gran % (34.0-67.9) % Immature Gran % (Auto) (0.001-0.429) % Nucleat RBC Rel Count (0.00-0.2) % Eos # (Auto) (0.04-0.54) x10^3/uL Immature Gran # (Auto) (0.001-0.031) x10^3u/L Absolute Lymphs (auto) (1.32-3.57) x10^3/uL Absolute Monos (auto) (0.30-0.82) x10^3/uL Absolute Nucleated RBC (0.00-0.012) x10^3u/L Lymphocytes % (21.8-53.1) % Monocytes % (5.3-12.2) % Eosinophils % (0.8-7.0) % Basophils % (0.2-1.2) % Absolute Granulocytes (1.78-5.38) x10^3/uL Basophils # (0.01-0.08) x10^3/uL Sodium (135-145) mmol/L Potassium (3.5-5.1) mmol/L Chloride (98-107) mmol/L Carbon Dioxide (22-30) mmol/L Anion Gap (5-15) MEQ/L BUN (9-20) mg/dL Creatinine (0.66-1.25) mg/dL Estimated GFR ML/MIN Glucose (74-106) mg/dL Lactic Acid 8.0 H (0.4-2.0) Calcium (8.4-10.2) mg/dL Magnesium (1.6-2.3) mg/dL Total Bilirubin (0.2-1.3) mg/dL AST (17-59) U/L ALT (0-50) U/L Alkaline Phosphatase (38-126) U/L Troponin 0.01 (0.00-0.03) ng/mL Serum Total Protein (6.3-8.2) g/dL Albumin (3.5-5.0) g/dL Urine Color Yellow (Yellow) Urine Appearance Clear (Clear) Urine pH 6.0 (4.6-8.0) Ur Specific [place] 1.020 (1.005-1.030) Urine Protein Negative (Negative) Urine Glucose (UA) Negative (Negative) mg/dL Urine Ketones Negative (Negative) Urine Blood Negative (Negative) Urine Nitrite Negative (Negative) Urine Bilirubin Negative (Negative) Urine Urobilinogen 0.2 (0.2) mg/dL Ur Leukocyte Esterase Small A (Negative) U Hyaline Cast (Auto) NONE SEEN (0-2) /LPF Urine Microscopic RBC 0-2 (0-5) /HPF Urine Microscopic WBC 6-10 A (0-5) /HPF Ur Epithelial Cells None Seen (None Seen) /HPF Urine Bacteria None Seen (None Seen) /HPF Urine Culture Reflexed NO (NO) Urine Opiates Level (NEGATIVE) Ur Methadone (NEGATIVE) Urine Barbiturates (NEGATIVE) Ur Phencyclidine (PCP) (NEGATIVE) Urine Amphetamine (NEGATIVE) U Benzodiazepine Level (NEGATIVE) Urine Cocaine (NEGATIVE) Urine Marijuana (THC) (NEGATIVE) 11/25/23 11/25/23 Range/Units 21:30 21:30 WBC 6.1 (4.23-9.07) x10^3/uL RBC 4.60 L (4.63-6.08) x10^6/uL Hgb 13.4 L (13.7-17.5) g/dL Hct 41.9 (40.1-51.0) % MCV 91.1 (79.0-92.2) fL MCH 29.1 (25.7-32.2) pg MCHC 32.0 L (32.3-36.5) g/dL RDW 13.3 (11.6-14.4) % Plt Count 244 (163-337) x10^3/uL MPV 8.4 L (9.4-12.4) fL Gran % 63.0 (34.0-67.9) % Immature Gran % (Auto) 0.3 (0.001-0.429) % Nucleat RBC Rel Count 0.0 (0.00-0.2) % Eos # (Auto) 0.03 L (0.04-0.54) x10^3/uL Immature Gran # (Auto) 0.02 (0.001-0.031) x10^3u/L Absolute Lymphs (auto) 1.65 (1.32-3.57) x10^3/uL Absolute Monos (auto) 0.52 (0.30-0.82) x10^3/uL Absolute Nucleated RBC 0.00 (0.00-0.012) x10^3u/L Lymphocytes % 27.1 (21.8-53.1) % Monocytes % 8.6 (5.3-12.2) % Eosinophils % 0.5 L (0.8-7.0) % Basophils % 0.5 (0.2-1.2) % Absolute Granulocytes 3.83 (1.78-5.38) x10^3/uL Basophils # 0.03 (0.01-0.08) x10^3/uL Sodium 141 (135-145) mmol/L Potassium 4.4 (3.5-5.1) mmol/L Chloride 108 H (98-107) mmol/L Carbon Dioxide 17 L (22-30) mmol/L Anion Gap 22.1 H (5-15) MEQ/L BUN 12 (9-20) mg/dL Creatinine 1.06 (0.66-1.25) mg/dL Estimated GFR 94.4 ML/MIN Glucose 96 (74-106) mg/dL Lactic Acid (0.4-2.0) Calcium 9.4 (8.4-10.2) mg/dL Magnesium 2.0 (1.6-2.3) mg/dL Total Bilirubin 0.40 (0.2-1.3) mg/dL AST 36 (17-59) U/L ALT 40 (0-50) U/L Alkaline Phosphatase 54 (38-126) U/L Troponin (0.00-0.03) ng/mL Serum Total Protein 7.3 (6.3-8.2) g/dL Albumin 4.5 (3.5-5.0) g/dL Urine Color (Yellow) Urine Appearance (Clear) Urine pH (4.6-8.0) Ur Specific [place] (1.005-1.030) Urine Protein (Negative) Urine Glucose (UA) (Negative) mg/dL Urine Ketones (Negative) Urine Blood (Negative) Urine Nitrite (Negative) Urine Bilirubin (Negative) Urine Urobilinogen (0.2) mg/dL Ur Leukocyte Esterase (Negative) U Hyaline Cast (Auto) (0-2) /LPF Urine Microscopic RBC (0-5) /HPF Urine Microscopic WBC (0-5) /HPF Ur Epithelial Cells (None Seen) /HPF Urine Bacteria (None Seen) /HPF Urine Culture Reflexed (NO) Urine Opiates Level (NEGATIVE) Ur Methadone (NEGATIVE) Urine Barbiturates (NEGATIVE) Ur Phencyclidine (PCP) (NEGATIVE) Urine Amphetamine (NEGATIVE) U Benzodiazepine Level (NEGATIVE) Urine Cocaine (NEGATIVE) Urine Marijuana (THC) (NEGATIVE) - Progress Progress: improved Progress Note: 11/26/23 00:59 Of note patient's toxicology screen positive for opiates however this is likely iatrogenic as patient was given a dose of morphine prior to collection of urine for toxicology screen. Patient reassessed neurologically. Patient ambulated throughout our ED without problems. Patient feels well headache resolved he has no complaints. Patient is a 33-year-old male history of epilepsy presents to our ED for evaluation of a seizure. Patient had 1 seizure not repeat seizures. Seizure lasted less than 15 minutes. Patient had a seizure while at work. Patient subsequently fell injuring his head. Patient experienced 2 lacerations both approximately 2 cm each to the left aspect of his forehead. There are also multiple contusions observed. Upon arrival patient was postictal. He was somewhat confused and somewhat combative as well. However this quickly cleared. Patient has clear mentation at this time. Vital stable. Troponin negative x 2. Initial lactic acid was 8. Patient received IV fluids repeat lactic acid level confirmed resolution of lactic acidosis. Repeat lactic acid level was 0.7. Lacerations were repaired using simple interrupted sutures. The 2.5 cm laceration was repaired using 3 sutures. 2 sutures were used to repair the 2 cm laceration. Patient tolerated procedure well. No intra or postprocedural complications. Laboratory workup otherwise nonremarkable. CT head negative for acute intracranial pathology. Patient neurologic status is normal. He is asymptomatic and now requesting discharge. UA significant for UTI. Patient received 1 g of Rocephin. No indication for further workup at this time. Patient states he does have epileptic medication that he stopped taking but will continue to take after this episode. Patient referred to Dr. Dias for follow-up. Patient agrees to follow-up within 48 hours for reevaluation. Patient will also contact his neurologist for further evaluation and treatment. Will discharge per his request. Patient voices no other complaints or concerns at this time. Portions of this note were created with voice recognition technology. There may be grammatical, spelling, punctuation or sound alike errors Complexity of problem addressed is moderate acute complicated. No critical care time. Complexity of data reviewed and analyzed is moderate. Test ordered chest reviewed results analyzed and correlated clinically with history and physical exam. Risk of complication and or risk of morbidity/mortality of patient management is moderate. A prescription for Keflex forwarded to patient's pharmacy to treat urinary tract infection.. Vital stable. Time spent to discharge patient is approximately 20 minutes. Plan of care established for shared decision making. No social determinants of health present to impede follow-up. Portions of this note were created with voice recognition technology. There may be grammatical, spelling, punctuation or sound alike errors 11/26/23 01:08 11/26/23 01:14 Counseled pt/family regarding: lab results, diagnosis, need for follow-up, rad results - Departure Departure Disposition: Home Clinical Impression: Seizure, Head injury, Scalp laceration, UTI (urinary tract infection), Marijuana use, Scalp hematoma Condition: Stable Critical Care Time: No Referrals: DOCTOR,NO FAMILY [Primary Care Provider] - Follow up/PCP as directed PAVEL DIAS DO [ACTIVE STAFF] - Follow up/PCP as directed Instructions: Laceration Repair With Stitches ED, Minor Head Injury, Adult ED, Seizures, Adult ED Additional Instructions: Discharge/Care Plan LORAINE CALDERON was seen on 11/26/23 in the Emergency Room. The patient was counseled regarding Diagnosis,Lab results, Imaging studies, need for follow up and when to return to the Emergency Room. Prescriptions given: Discharge Note I have spoken with the patient and/or caregivers. I have explained the patient's condition, diagnosis and treatment plan based on the information available to me at this time. I have answered the patient's and/or caregiver's questions and addressed any concerns. The patient and/or caregivers have as good understanding of the patient's diagnosis, condition and treatment plan as can be expected at this point. The vital signs have been stable. The patient's condition is stable and appropriate for discharge from the emergency department. The patient will pursue further outpatient evaluation with the primary care physician or other designated or consulting physician as outlined in the discharge instructions. The patient and/or caregivers are agreeable to this plan of care and follow-up instructions have been explained in detail. The patient and/or caregivers have received these instruction. The patient/and or caregivers are aware that any significant change in condition or worsening of symptoms should prompt an immediate return to this or the closest emergency department or call 911. Prescriptions: Cephalexin Mh 500 mg [Keflex 500 mg] 500 mg PO TID 7 Days #21 cap
[2023-11-25] MEDS ORDERED: MORPHINE SULFATE 2 MG INJ ONE (22:44)
[2023-11-25] MEDS ORDERED: Sodium Chloride 0.9% 1000 ML 1,000 ML ONE (22:44)
[2023-11-25] MEDS: Sodium Chloride 0.9% 1000 ML 1,000 ML IV SCH (22:44)
[2023-11-25] MEDS: MORPHINE SULFATE 2 MG INJ IV ONE (22:45)
[2023-11-25] MEDS ORDERED: XYLOCAINE 1% HCL 20 ML MDV ONE (23:24)
[2023-11-25 23:27] LABS: Appearance Clear (Clear); Bacteria None Seen /HPF (None Seen); Bilirubin Negative (Negative); Blood Negative (Negative); Epithelial Cells None Seen /HPF (None Seen); Glucose, Urine Negative (Negative); Hyaline Casts NONE SEEN /LPF (0-2); Ketones Negative (Negative); Leukocyte Esterase Small (Negative); Nitrite Negative (Negative); Protein,Urine Dip Negative (Negative); RBC 0-2 /HPF (0-5); Urobilinogen 0.2 mg/dL (0.2)
[2023-11-25 23:54] LABS: Amphetamine,Urine NEGATIVE (NEGATIVE); Barbiturate,Urine NEGATIVE (NEGATIVE); Benzodiazepine,Urine NEGATIVE (NEGATIVE); Cocaine,Urine NEGATIVE (NEGATIVE); Methadone,Urine NEGATIVE (NEGATIVE); Opiate,Urine POSITIVE (NEGATIVE); PCP,Urine NEGATIVE (NEGATIVE); THC,Urine POSITIVE (NEGATIVE)
[2023-11-26 00:06] VITALS: RESP 17
[2023-11-26 00:24] VITALS: O2SAT 99
[2023-11-26] MEDS: XYLOCAINE 1% HCL 20 ML MDV SUBDERMAL ONE (00:27)
[2023-11-26] MEDS ORDERED: ROCEPHIN 1 GM / 100 ML NaCl 1 GM/100 ML IVPB IV ONE (00:27)
[2023-11-26] MEDS: ROCEPHIN 1 GM / 100 ML NaCl 1 GM/100 ML IVPB IV ONE (00:28)
[2023-11-26 01:05] VITALS: BP 111/71
[2023-11-26 01:07] VITALS: PULSE 72
--- NOTE | 2023-11-26 07:05 | XRAY ---
CLINICAL HISTORY: trauma COMPARISON: 08/30/2023. TECHNIQUE: Multiple axial images are obtained from the skull base to the vertex without contrast. CT scan was performed according to ALARA (as low as reasonably achievable). FINDINGS: The brain shows normal morphology, attenuation, and volume for age. The bergeron-white matter differentiation is preserved. No evidence of space occupying lesion, hemorrhage, edema, mass effect, midline shift, extra axial collection, or hydrocephalus is noted. Ventricles, sulci, and basal cisterns are symmetric and normal in size and configuration. Visualized paranasal sinuses and mastoid air cells are well aerated. Orbital contents are within normal limits. Bony structures are intact. Scalp haematoma is seen in the right high parietal region. Maximum thickness measures 12 mm. No significant interval change in the size in the subcutaneous lesion in right occipital region is noted in the current study. IMPRESSION: 1. No evidence of acute intracranial abnormality is demonstrated. 2. Scalp haematoma of maximum thickness 12 mm is noted in the right high parietal region. Electronically Signed by: Grover Martin MD. (11/25/2023 22:36:29 EDT)
== END 2023-11-26 01:12 | disposition home or self-care (01) ==
LOC: ED 21:13
DX: G40.909 Epilepsy, unspecified, not intractable, without status epilepticus (principal); S09.90XA Unspecified injury of head, initial encounter; S01.01XA Laceration without foreign body of scalp, initial encounter; S00.03XA Contusion of scalp, initial encounter; W18.39XA Other fall on same level, initial encounter; N39.0 Urinary tract infection, site not specified; F12.90 Cannabis use, unspecified, uncomplicated; Z79.899 Other long term (current) drug therapy; Z72.0 Tobacco use; Z59.00 Homelessness unspecified
CPT/HCPCS: 12002; 36000; 36415; 70450; 80053; 80307; 81001; 83605; 83735; 84484; 85025; 93005; 93041; 94760; 96374; 99284; J0696; J2270

== ENCOUNTER 2023-12-11 11:37 | Emergency (ER) | payer OTHER ==
[2023-12-11 11:41] VITALS: TEMP 97.5
--- NOTE | 2023-12-11 11:43 | ERPHSYRPT ---
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 This is the patient's 10th visit to the emergency department for similar complaint of seizure breakthrough since March 16, 2023. Patient has a history of epilepsy and ADD. He is noncompliant with his medications. Patient arrives in no distress. He is talking clearly, talking on his cell phone and denies chest pain. Denies abdominal pain, denies headache. He did not soil himself with stool or urine. Patient is supposed to be taking Keppra but has never filled prescriptions for it. Timing/Duration: today Severity: mild Character of Deficits: none Deficits: no difficulties Baseline/Normal Cognition: alert 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 Current Cognition: alert 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 Baseline Gait: walks w/o assistance Associated Symptoms: seizures (Uncontrolled. Patient noncompliant), No nausea, No vomiting, No vision changes, No chest pain, No headache Allergies/Adverse Reactions: No Known Drug Allergies Allergy (Verified 11/25/23 21:14) Hx Tetanus, Diphtheria Vaccination/Date Given: Yes Hx Influenza Vaccination/Date Given: No Hx Pneumococcal Vaccination/Date Given: No Travel Risk - International Travel Have you traveled outside of the country in past 3 weeks: No - Emerging Infectious Disease Are you exhibiting symptoms associated with any current EIDs: No Symptoms: Vomitting - Review of Systems Constitutional: No Symptoms Eyes: No Symptoms Ears, Nose, & Throat: No Symptoms Respiratory: No Symptoms Cardiac: No Symptoms Abdominal/Gastrointestinal: No Symptoms Genitourinary Symptoms: No Symptoms Musculoskeletal: No Symptoms Skin: No Symptoms Neurological: Seizure (Occurred at work. Symptoms completely resolved on arrival to the emergency department) Psychological: No Symptoms Endocrine: No Symptoms Hematologic/Lymphatic: No Symptoms Immunological/Allergic: No Symptoms All Other Systems: Reviewed and Negative - Past Medical History Pertinent Past Medical History: Yes Neurological History: Seizures ENT History: No Pertinent History Cardiac History: No Pertinent History Respiratory History: No Pertinent History Endocrine Medical History: No Pertinent History Musculoskeletal History: No Pertinent History GI Medical History: No Pertinent History History: No Pertinent History Psycho-Social History: Attention Deficit Disorder Male Reproductive Disorders: No Pertinent History Other Medical History: States his only medical history is being attacked/biten by a pack of dogs when he was a child and ADHD - Past Surgical History Past Surgical History: No - Social History Smoking Status: Current some day smoker Exposure to second hand smoke: Yes Drug Use: marijuana Patient Lives Alone: Yes (homeless) - Social Determinants of Health Will the patient participate in the screening: Unable to obtain Do you worry about a steady place to live?: Yes In the past 12 months,have you had to go without utilities?: No Transportation Issues: No Has anyone in your support network made you feel unsafe?: No Have you or anyone in your house had to go without enough: No - Nursing Vital Signs Nursing Vital Signs: Initial Vital Signs Pulse Rate 82 12/11/23 11:39 Respiratory Rate 22 12/11/23 11:39 Blood Pressure 109/61 12/11/23 11:39 O2 Sat by Pulse Oximetry 98 12/11/23 11:39 Pain Scale Pain Intensity 0 - Stacy Coma Scale Best Eye Response ([place]): (4) open spontaneously Best Verbal Response ([place]): (5) oriented Best Motor Response ([place]): (6) obeys commands [place] Total: 15 - Physical Exam General Appearance: no apparent distress, alert, thin Eye Exam: bilateral eye: normal inspection, PERRL, EOMI Ears, Nose, Throat Exam: normal ENT inspection, moist mucous membranes Neck Exam: normal inspection, non-tender, supple, full range of motion Respiratory: normal breath sounds, lungs clear, airway intact, No chest tenderness, No respiratory distress Cardiovascular: regular rate/rhythm, normal heart sounds, normal peripheral pulses Gastrointestinal: soft, normal bowel sounds, No tenderness Rectal Exam: not done Back Exam: normal inspection, normal range of motion, No CVA tenderness, No vertebral tenderness Extremity Exam: normal inspection, normal range of motion, pelvis stable 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 Care 12/11/23 11:45 Completed IV Insertion STAT Care 12/11/23 11:44 Completed POCT Glucose Check STAT Care 12/11/23 11:44 Completed Pulse Oximetry (ED) STAT Care 12/11/23 11:44 Completed HEAD WITHOUT CONTRAST [CT] Stat Exams 12/11/23 11:43 Completed CBC W DIFF Stat Lab 12/11/23 12:22 Completed CMP Stat Lab 12/11/23 12:22 Completed ETHYL ALCOHOL Stat Lab 12/11/23 12:22 Completed UA W/RFX UR CULTURE Stat Lab 12/11/23 11:43 Ordered Urine Triage Profile Stat Lab 12/11/23 11:43 Ordered Medication Summary Discontinued Medications Generic Name Dose Route Start Last Admin Trade Name Freq PRN Reason Stop Dose Admin Sodium Chloride 1,000 mls @ 999 mls/hr 12/11/23 11:44 12/11/23 12:58 Sodium Chloride 0.9% 1000 Ml IV 12/11/23 12:44 999 mls/hr .Q1H1M STA Administration Levetiracetam 500 mg/ Dextrose 105 mls @ 400 mls/hr 12/11/23 12:23 12/11/23 13:01 IV 12/11/23 12:38 400 mls/hr STAT ONE Administration Sodium Chloride Confirm 12/11/23 12:50 Sodium Chloride 0.9% 1000 Ml Administered 12/11/23 12:51 Dose 1,000 mls @ ud .ROUTE .STK-MED ONE Dextrose Confirm 12/11/23 12:51 D5w 100ml Mini Bag 100 Ml Administered 12/11/23 12:52 Dose 100 mls @ ud IV .STK-MED ONE Levetiracetam Confirm 12/11/23 12:50 Levetiracetam 500 Mg/5 Ml Vial Administered 12/11/23 12:51 Dose 500 mg .ROUTE .STK-MED ONE Lab/Rad Data: Laboratory Result Diagrams 12/11/23 12:22 12/11/23 12:22 Laboratory Results 12/11/23 12/11/23 12/11/23 Range/Units 12:22 12:22 12:22 WBC 4.2 L (4.23-9.07) x10^3/uL RBC 4.03 L (4.63-6.08) x10^6/uL Hgb 11.8 L (13.7-17.5) g/dL Hct 35.5 L (40.1-51.0) % MCV 88.1 (79.0-92.2) fL MCH 29.3 (25.7-32.2) pg MCHC 33.2 (32.3-36.5) g/dL RDW 13.4 (11.6-14.4) % Plt Count 262 (163-337) x10^3/uL MPV 8.4 L (9.4-12.4) fL Gran % 52.6 (34.0-67.9) % Immature Gran % (Auto) 0.2 (0.001-0.429) % Nucleat RBC Rel Count 0.0 (0.00-0.2) % Eos # (Auto) 0.03 L (0.04-0.54) x10^3/uL Immature Gran # (Auto) 0.01 (0.001-0.031) x10^3u/L Absolute Lymphs (auto) 1.54 (1.32-3.57) x10^3/uL Absolute Monos (auto) 0.38 (0.30-0.82) x10^3/uL Absolute Nucleated RBC 0.00 (0.00-0.012) x10^3u/L Lymphocytes % 36.9 (21.8-53.1) % Monocytes % 9.1 (5.3-12.2) % Eosinophils % 0.7 L (0.8-7.0) % Basophils % 0.5 (0.2-1.2) % Absolute Granulocytes 2.19 (1.78-5.38) x10^3/uL Basophils # 0.02 (0.01-0.08) x10^3/uL Sodium 137 (135-145) mmol/L Potassium 4.1 (3.5-5.1) mmol/L Chloride 106 (98-107) mmol/L Carbon Dioxide 19 L (22-30) mmol/L Anion Gap 16.5 H (5-15) MEQ/L BUN 12 (9-20) mg/dL Creatinine 1.00 (0.66-1.25) mg/dL Estimated GFR 101.3 ML/MIN Glucose 83 (74-106) mg/dL Calcium 9.0 (8.4-10.2) mg/dL Total Bilirubin 0.40 (0.2-1.3) mg/dL AST 30 (17-59) U/L ALT 27 (0-50) U/L Alkaline Phosphatase 48 (38-126) U/L Serum Total Protein 7.3 (6.3-8.2) g/dL Albumin 4.3 (3.5-5.0) g/dL Ethyl Alcohol < 10 (0-10) mg/dL - Progress Progress: improved, re-examined Progress Note: 12/11/23 12:20 9 medical decision making and the assignment of moderate complexity to this patient's medical issue today is based on review of the patient's past medical history, review of the patient's medication list, reviewed patient drug allergy list, history present illness and physical findings on examination. The workup today includes intravenous line placement, CBC, CMP, urinalysis, urine drug screen, ethyl alcohol level, CT scan of the head. Differential diagnosis includes but is not limited to illicit drug use/induced seizure, alcohol abuse/induced seizure, breakthrough seizure secondary to noncompliance 12/11/23 13:47 Patient does not want to provide urine specimen. He wants to go home. He does not want to lose his job. I did interpret the remainder of the laboratory workup. Patient does not want any more fluids. He understands that the workup is not complete yet. He understands the risk of leaving without a complete workup. He understands the alternatives of staying and the benefits of staying. He still wishes to leave and he will sign the AMA form. 12/11/23 14:08 Counseled pt/family regarding: lab results, diagnosis, rad results Medical Desision Making - Diagnostic Testing Diagnostic test were ordered, analyzed, and reviewed by me: Yes Radiological Interpretation: Reviewed by me, Teleradiologist Report - Departure Departure Disposition: AMA Clinical Impression: Breakthrough seizure Condition: Good Critical Care Time: No Referrals: DOCTOR,NO FAMILY [Primary Care Provider] - Follow up/PCP as directed
[2023-12-11 12:33] LABS: Absolute Neutrophil Ct (ANC) 2.19 x10^3/uL (1.78-5.38); BASOPHIL % 0.5 % (0.2-1.2); Basophil (Absolute #) 0.02 x10^3/uL (0.01-0.08); Eosinophil % 0.7 % (0.8-7.0); Eosinophil (Absolute #) 0.03 x10^3/uL (0.04-0.54); Hematocrit 35.5 % (40.1-51.0); Hemoglobin 11.8 g/dL (13.7-17.5); IMMATURE GRAN # 0.01 x10^3u/L (0.001-0.031); IMMATURE GRAN % 0.2 % (0.001-0.429); Lymphocyte (Absolute #) 1.54 x10^3/uL (1.32-3.57); Lymphocytes % 36.9 % (21.8-53.1); Mean Cell Volume 88.1 fL (79.0-92.2); Mean Corpuscular Hemoglobin 29.3 pg (25.7-32.2); Mean Corpuscular Hgb Concent. 33.2 g/dL (32.3-36.5); Mean Platelet Volume 8.4 fL (9.4-12.4); Monocyte (Absolute #) 0.38 x10^3/uL (0.30-0.82); Monocytes % 9.1 % (5.3-12.2); Neutrophil % 52.6 % (34.0-67.9); Platelet Count 262 x10^3/uL (163-337); Red Blood Count 4.03 x10^6/uL (4.63-6.08); Red Cell Distribution Width 13.4 % (11.6-14.4); White Blood Count 4.2 x10^3/uL (4.23-9.07)
[2023-12-11 12:43] VITALS: BP 132/78; PULSE 86; RESP 31
[2023-12-11 12:48] LABS: ALBUMIN 4.3 g/dL (3.5-5.0); ANION GAP 16.5 MEQ/L (5-15); BILIRUBIN,TOTAL 0.4 mg/dL (0.2-1.3); EST GLOMERULAR FILTRATION RATE 101.3 ML/MIN; Potassium 4.1 mmol/L (3.5-5.1); Total Protein 7.3 g/dL (6.3-8.2)
[2023-12-11] MEDS ORDERED: Sodium Chloride 0.9% 1000 ML 1,000 ML ONE (12:50)
[2023-12-11] MEDS ORDERED: Keppra 500 MG/5 ML ONE (12:50)
[2023-12-11] MEDS ORDERED: D5w 100ML Mini Bag 100 ML 100 ML IV ONE (12:51)
--- NOTE | 2023-12-11 12:51 | XRAY ---
Indication: Breakthrough seizure. Multiple contiguous axial images obtained through the head without contrast. Comparison: November 25, 2023 Normal appearing brain parenchyma, ventricles, and bony calvarium. Visualized paranasal sinuses and mastoid air cells are clear. Impression: Again normal CT head without contrast exam, unchanged for the last [address] head exams performed in 2023.
[2023-12-11] MEDS: Sodium Chloride 0.9% 1000 ML 1,000 ML IV STA (12:58)
[2023-12-11] MEDS: Keppra 500 MG/5 ML*** 500 MG in D5w 100ML Mini Bag 100 ML 100 ML IV ONE (13:01)
[2023-12-11 13:49] VITALS: O2SAT 97
== END 2023-12-11 13:58 | disposition left against medical advice (07) ==
LOC: ED 11:37
DX: G40.909 Epilepsy, unspecified, not intractable, without status epilepticus (principal); T42.6X6A Underdosing of other antiepileptic and sedative-hypnotic drugs, initial encounter; Z91.148 Patient's other noncompliance with medication regimen for other reason; Z72.0 Tobacco use; Z59.00 Homelessness unspecified
CPT/HCPCS: 36000; 36415; 70450; 80053; 82077; 85025; 93041; 94760; 96374; 99284; J1953